=== PATIENT | female | born 1945 | race Caucasian/White ===

== ENCOUNTER 2017-11-09 12:02 | Inpatient (IN) | payer MEDICARE ==
[2017-11-09] MEDS ORDERED: FENTANYL CITRATE INJ/PF 100 MCG/2 ML AMPUL IV ONE ×2 (12:49→16:44)
[2017-11-09] MEDS ORDERED: ONDANSETRON HCL INJ/PF 4 MG/2 ML SDV IV ONE (12:49)
[2017-11-09] MEDS ORDERED: NORMAL SALINE 1000 ML 1,000 ML IV ONE ×2 (12:51→16:47)
--- NOTE | 2017-11-09 12:52 | ER Document Report ---
ED Medical Screen (RME) - General Chief Complaint: Nausea/Vomiting/Diarrhea Stated Complaint: NAUSEA,VOMITING,DIARRHEA Time Seen by Provider: 11/09/17 12:40 Notes: 72-year-old female past medical history IBS here with complaints of diffuse abdominal pain and distention since yesterday. She has had some nausea but no vomiting. She denies any fevers or chills. She was seen at an urgent care facility this morning and told to come here to rule out obstruction EXAM Mild to moderate abdominal distention with mild tenderness to palpation No peritoneal signs TRAVEL OUTSIDE OF THE [place] IN LAST 30 DAYS: No - Related Data Allergies/Adverse Reactions: No Known Allergies Allergy (Verified 11/09/17 12:03) Past Medical History - Social History Chew tobacco use (# tins/day): No Frequency of alcohol use: None Drug Abuse: None Renal/ Medical History: Denies: Hx Peritoneal Dialysis Physical Exam - Vital signs Vitals: Temp Pulse Resp BP Pulse Ox 98.3 F 109 H 16 141/72 H 98 11/09/17 12:09 11/09/17 12:09 11/09/17 12:09 11/09/17 12:09 11/09/17 12:09 Course - Vital Signs Vital signs: Temp Pulse Resp BP Pulse Ox 98.3 F 109 H 16 141/72 H 98 11/09/17 12:09 11/09/17 12:09 11/09/17 12:09 11/09/17 12:09 11/09/17 12:09
[2017-11-09 13:46] LABS: HEMATOCRIT 40.6 % (36.0-47.0); HEMOGLOBIN 13.5 g/dL (12.0-15.5); MEAN CORPUSCULAR HEMOGLOBIN 29.6 pg (27.0-33.4); MEAN CORPUSCULAR HGB CONC 33.3 g/dL (32.0-36.0); MEAN CORPUSCULAR VOLUME 89 fl (80-97); PLATELET COUNT 500 10^3/uL (150-450); RED BLOOD COUNT 4.57 10^6/uL (3.72-5.28); RED CELL DISTRIBUTION WIDTH 13.6 % (11.5-14.0); WHITE BLOOD COUNT 14.6 10^3/uL (4.0-10.5)
[2017-11-09 14:03] LABS: ALANINE AMINOTRANSFERASE 18 U/L (9-52); ALBUMIN 4.5 g/dL (3.5-5.0); ALKALINE PHOSPHATASE 66 U/L (38-126); ANION GAP 13 (5-19); ASPARTATE AMINO TRANSFERASE 28 U/L (14-36); BILIRUBIN,DIRECT 0.2 mg/dL (0.0-0.4); BILIRUBIN,TOTAL 0.7 mg/dL (0.2-1.3); BLOOD UREA NITROGEN 31 mg/dL (7-20); CARBON DIOXIDE 26 mmol/L (22-30); CHLORIDE 99 mmol/L (98-107); GLUCOSE 124 mg/dL (75-110); LIPASE 51.8 U/L (23-300); POTASSIUM 5.2 mmol/L (3.6-5.0); SODIUM 137.8 mmol/L (137-145); TOTAL PROTEIN 6.9 g/dL (6.3-8.2)
[2017-11-09 14:09] LABS: ABSOLUTE LYMPHOCYTES# (MANUAL) 0.4 10^3/uL (0.5-4.7); ABSOLUTE MONOCYTES # (MANUAL) 0.1 10^3/uL (0.1-1.4); BASOPHILS % (MANUAL) 0 % (0-2); EOSINOPHILS % (MANUAL) 0 % (0-6); HYPOCHROMASIA SLIGHT; LYMPHOCYTES % (MANUAL) 3 % (13-45); MONOCYTES % (MANUAL) 1 % (3-13); PLATELET CLUMPS PRESENT; PLATELET LARGE PRESENT; SEGMENTED NEUTROPHILS % (MAN) 96 % (42-78); TOTAL CELLS COUNTED 100; TOXIC GRANULATION SLIGHT; TOXIC VACUOLATION PRESENT
--- NOTE | 2017-11-09 16:47 | RADIOLOGY REPORT (SQ) ---
EXAM DESCRIPTION: CT ABD/PELVIS WITH IV ORAL COMPLETED DATE/TIME: 11/09/2017 4:30 pm REASON FOR STUDY: diffuse abd pain distension; eval SBO COMPARISON: None. TECHNIQUE: CT scan of the abdomen and pelvis performed with intravenous and oral contrast using derba heydi scanning technique with dynamic intravenous contrast injection. Images reviewed with lung, soft t issue, and bone windows. Reconstructed coronal and sagittal MPR images reviewed. Delayed images for e valuation of the urinary system also acquired. All images stored on PACS. All CT scanners at this facility use dose modulation, iterative reconstruction, and/or weight based d osing when appropriate to reduce radiation dose to as low as reasonably achievable (ALARA). [facility]: Dose Right [facility]: CareDose [facility]: Dose Right [facility]: Teradose 4D [facility]: Profex CONTRAST TYPE AND DOSE: contrast/concentration: Isovue 370.00 mg/ml; Total Contrast Delivered: 48.0 ml; Total Saline Delivered: 65.0 ml RENAL FUNCTION: GFR > 60. RADIATION DOSE: CT Rad equipment meets quality standard of care and radiation dose reduction techniq ues were employed. CTDIvol: 4.9 - 6.0 mGy. DLP: 455 mGy-cm. . LIMITATIONS: Patient motion. FINDINGS: LOWER CHEST: No significant findings. No nodules or infiltrates. LIVER: Normal size. No masses. No dilated ducts. SPLEEN: Normal size. No focal lesions. PANCREAS: No masses. No significant calcifications. No adjacent inflammation or peripancreatic fluid collections. Pancreatic duct not dilated. GALLBLADDER: No identified stones by CT criteria. No inflammatory changes to suggest cholecystitis. ADRENAL GLANDS: 1 x 2 cm right adrenal nodule. RIGHT KIDNEY AND URETER: No solid masses. No significant calcifications. No hydronephrosis or hyd roureter. LEFT KIDNEY AND URETER: No solid masses. No significant calcifications. No hydronephrosis or hydr oureter. AORTA AND VESSELS: No aneurysm. RETROPERITONEUM: No retroperitoneal adenopathy, hemorrhage or masses. BOWEL AND PERITONEAL CAVITY: Dilated loops of small bowel with gas fluid levels. Majority contrast i s in the jejunum. No clear transition point. Contrast within nondilated colon. No ascites or free air. APPENDIX: Not visualized. PELVIS: No significant masses. Normal bladder. No free fluid. ABDOMINAL WALL: No masses. No hernias. BONES: No acute findings. OTHER: No other significant finding. IMPRESSION: Small bowel obstruction without clear transition point. TECHNICAL DOCUMENTATION: JOB ID: [id number] Quality ID # [id number]: Final reports with documentation of one or more dose reduction techniques (e.g., Au tomated exposure control, adjustment of the mA and/or kV according to patient size, use of iterative reconstruction technique) 2010 [employer]- All Rights Reserved
[2017-11-09 16:58] LABS: APPEARANCE,URINE CLOUDY; BILIRUBIN,URINE NEGATIVE (NEGATIVE); COLOR,URINE YELLOW; GLUCOSE, URINE 50 mg/dL (NEGATIVE); KETONES,URINE 20 mg/dL (NEGATIVE); LEUKOCYTE ESTERASE,URINE NEGATIVE (NEGATIVE); NITRITE,URINE NEGATIVE (NEGATIVE); PROTEIN,URINE 30 mg/dL (NEGATIVE); URINE SPECIFIC GRAVITY 1.029
--- NOTE | 2017-11-09 17:05 | ER Document Report ---
ED General - General Chief Complaint: Nausea/Vomiting/Diarrhea Stated Complaint: NAUSEA,VOMITING,DIARRHEA Time Seen by Provider: 11/09/17 12:40 Mode of Arrival: Ambulatory Information source: Patient TRAVEL OUTSIDE OF THE [place] IN LAST 30 DAYS: No - HPI Patient complains to provider of: abd pain Onset: Other - 3 dcays ago Onset/Duration: Gradual, Constant Quality of pain: Other - "gurgling" Severity: Moderate Context: States the last 3 days she has had abdominal distention, nausea, decreased p.o. intake and diarrhea last night at 1 AM. Patient states she has had no history of surgeries in the past. She does have a history of IBS. Patient's mother has a history of colon cancer. Patient denies colonoscopy or endoscopy in the past. No acute weight gain or loss. Associated symptoms: Diarrhea, Nausea Exacerbated by: Movement, Food Relieved by: Denies Similar symptoms previously: No Recently seen / treated by doctor: Yes - Sent over from urgent care for further evaluation - Related Data Allergies/Adverse Reactions: No Known Allergies Allergy (Verified 11/09/17 12:03) Home Medications: Current Home Medications No Home Medications 11/09/17 [History] Past Medical History - General Information source: Patient - Social History Smoking Status: Current Every Day Smoker Chew tobacco use (# tins/day): No Frequency of alcohol use: None Drug Abuse: None Lives with: Alone Family History: Other - Colon cancer Patient has suicidal ideation: No Patient has homicidal ideation: No - Past Medical History Cardiac Medical History: Reports: None Pulmonary Medical History: Reports: None EENT Medical History: Reports: None Neurological Medical History: Reports: None Endocrine Medical History: Reports: None Renal/ Medical History: Reports: None. Denies: Hx Peritoneal Dialysis Malignancy Medical History: Reports: None GI Medical History: Reports: Hx Irritable Bowel Musculoskeltal Medical History: Reports None Skin Medical History: Reports None Psychiatric Medical History: Reports: None Traumatic Medical History: Reports: None Infectious Medical History: Reports: None Surgical Hx: Negative Review of Systems - Review of Systems Constitutional: denies: Chills, Diaphoresis, Fever, Malaise, Weakness, Weight gain, Weight loss, Recent illness EENT: No symptoms reported Cardiovascular: No symptoms reported Respiratory: No symptoms reported Gastrointestinal: Abdomen distended, Abdominal pain, Nausea, Poor appetite, Poor fluid intake, Last bowel movement - 1 am Genitourinary: No symptoms reported Female Genitourinary: No symptoms reported Musculoskeletal: No symptoms reported Skin: No symptoms reported Hematologic/Lymphatic: No symptoms reported Neurological/Psychological: No symptoms reported Physical Exam - Vital signs Vitals: Temp Pulse Resp BP Pulse Ox 98.3 F 109 H 16 141/72 H 98 11/09/17 12:09 11/09/17 12:09 11/09/17 12:09 11/09/17 12:09 11/09/17 12:09 - Notes Notes: PHYSICAL EXAMINATION: GENERAL: Thin chronically ill-appearing female. HEAD: Atraumatic, normocephalic. EYES: Pupils equal round and reactive to light, extraocular movements intact, conjunctiva are normal. ENT: Nares patent, oropharynx clear without exudates. Dry mucous membranes. NECK: Normal range of motion, supple without lymphadenopathy LUNGS: Breath sounds clear to auscultation bilaterally and equal. No wheezes rales or rhonchi. HEART: Regular rate and rhythm without murmurs ABDOMEN: Distended hypoactive bowel sounds mild tenderness no guarding, no rebound. No masses appreciated. Female : deferred Musculoskeletal: Normal range of motion, no pitting or edema. No cyanosis. NEUROLOGICAL: Cranial nerves grossly intact. Normal speech, normal gait. Normal sensory, motor exams PSYCH: Normal mood, normal affect. SKIN: Warm, Dry, normal turgor, no rashes or lesions noted. Course - Re-evaluation Re-evalutation: 11/09/17 17:06 I did speak with Dr. Olvera. He he is coming to see patient. - Vital Signs Vital signs: Temp Pulse Resp BP Pulse Ox 98.3 F 109 H 18 148/77 H 96 11/09/17 12:09 11/09/17 12:09 11/09/17 18:31 11/09/17 18:31 11/09/17 18:31 - Laboratory Result Diagrams: 11/09/17 13:26 11/09/17 13:26 Laboratory results interpreted by me: 11/09/17 11/09/17 11/09/17 13:26 13:26 16:32 WBC 14.6 H Plt Count 500 H Seg Neuts % (Manual) 96 H Lymphocytes % (Manual) 3 L Monocytes % (Manual) 1 L Abs Neuts (Manual) 14.0 H Abs Lymphs (Manual) 0.4 L Potassium 5.2 H BUN 31 H Glucose 124 H Urine Protein 30 H Urine Glucose (UA) 50 H Urine Ketones 20 H Urine Urobilinogen 2.0 H Urine Ascorbic Acid 40 H - Diagnostic Test Radiology reviewed: Image reviewed, Reports reviewed Radiology results interpreted by me: 11/09/17 17:05 Small bowel obstruction 11/09/17 19:06 KUB showed further advancements of NG tube needed. Nurse aware and procedure completed Discharge - Discharge Clinical Impression: Small bowel obstruction Disposition: ADMITTED INPATIENT Admitting Provider: Surgicalist Unit Admitted: Surgical Floor
--- NOTE | 2017-11-09 18:29 | RADIOLOGY REPORT (SQ) ---
EXAM DESCRIPTION: KUB/ABDOMEN (SINGLE VIEW) COMPLETED DATE/TIME: 11/09/2017 6:17 pm REASON FOR STUDY: NG placement COMPARISON: None. NUMBER OF VIEWS: One view. TECHNIQUE: Supine radiographic image of the abdomen acquired. LIMITATIONS: None. FINDINGS: BOWEL GAS PATTERN: Dilated small bowel. CALCIFICATIONS: No suspicious calcifications. SOFT TISSUES: No gross mass or suggestion of organomegaly. HARDWARE: Tip of the nasogastric tube at the level of the gastroesophageal junction. BONES: No acute fracture. No worrisome bone lesions. OTHER: No other significant finding. IMPRESSION: TIP OF THE NASOGASTRIC TUBE AT THE LEVEL OF THE GASTROESOPHAGEAL JUNCTION. ADVANCEMENT BY 10 CM RECOMMENDED TO IMPROVE POSITIONING. TECHNICAL DOCUMENTATION: JOB ID: [id number] [employer] All Rights Reserved
[2017-11-09] MEDS ORDERED: ONDANSETRON HCL INJ/PF 4 MG/2 ML SDV IV PRN (19:19)
--- NOTE | 2017-11-09 19:19 | PDOC H&P ---
History of Present Illness Admission Date/PCP: 11/09/17 Patient complains of: Abdominal pains History of Present Illness: ALEJANDRA BHAKTA is a 72 year old female c/o lower abdominal pains with N/V for past 2 days worse today. Brought to ED by her neighbor. CT scan of abdomen showed SBO with no focal point identified.No previous abdominal surgery.Strong family histoty of colon cancer. Never had a colonoscopy. Past Medical History Cardiac Medical History: Reports: None Pulmonary Medical History: Reports: None EENT Medical History: Reports: None Neurological Medical History: Reports: None Endocrine Medical History: Reports: None Renal/ Medical History: Reports: None Malignancy Medical History: Reports: None Musculoskeltal Medical History: Reports: None Skin Medical History: Reports: None Psychiatric Medical History: Reports: None Traumatic Medical History: Reports: None Infectious Medical History: Reports: None Social History Lives with: Alone Smoking Status: Current Every Day Smoker Cigarettes Packs Per Day: 1 Frequency of Alcohol Use: Rare Hx Recreational Drug Use: No - Advance Directive Resuscitation Status: Full Code Family History Family History: Other - Colon cancer Parental Family History Reviewed: Yes - History of colon CA Children Family History Reviewed: No Sibling(s) Family History Reviewed.: No Medication/Allergy Home Medications: No Home Medications 11/09/17 Allergies/Adverse Reactions: No Known Allergies Allergy (Verified 11/09/17 12:03) Review of Systems Constitutional: PRESENT: other - No fever/chills Eyes: PRESENT: other - no visual,hearing changes Nose, Mouth, and Throat: PRESENT: other - no sore throat Cardiovascular: PRESENT: other - no chest pains Respiratory: PRESENT: other - no cough Gastrointestinal: PRESENT: abdominal pain, nausea, vomiting Genitourinary: PRESENT: other - no dysuria Musculoskeletal: PRESENT: other - no joint swelling Integumentary: PRESENT: other - no rash Neurological: PRESENT: other - no seizures Psychiatric: PRESENT: anxiety Endocrine: PRESENT: other - no polyuria Hematologic/Lymphatic: PRESENT: other - no easy bruisability Physical Exam Vital Signs: Temp Pulse Resp BP Pulse Ox 98.3 F 109 H 18 148/77 H 96 11/09/17 12:09 11/09/17 12:09 11/09/17 18:31 11/09/17 18:31 11/09/17 18:31 Intake & Output 11/08/17 11/09/17 11/10/17 06:59 06:59 06:59 Weight 44.3 kg General appearance: PRESENT: mild distress Head exam: PRESENT: atraumatic Eye exam: PRESENT: conjunctiva pink Mouth exam: PRESENT: dry mucosa Neck exam: PRESENT: full ROM Respiratory exam: PRESENT: clear to auscultation everardo Cardiovascular exam: PRESENT: RRR Pulses: PRESENT: normal radial pulses GI/Abdominal exam: PRESENT: soft, tenderness - lower quadrants Rectal exam: PRESENT: deferred Extremities exam: PRESENT: full ROM Musculoskeletal exam: PRESENT: ambulatory Neurological exam: PRESENT: alert, oriented to person, oriented to place, oriented to time, oriented to situation Psychiatric exam: PRESENT: anxious Skin exam: PRESENT: normal color, warm Results Laboratory Results: 11/09/17 13:26 11/09/17 13:26 11/09/17 11/09/17 11/09/17 13:26 13:26 16:32 WBC 14.6 H RBC 4.57 Hgb 13.5 Hct 40.6 MCV 89 MCH 29.6 MCHC 33.3 RDW 13.6 Plt Count 500 H Seg Neutrophils % Not Reportable Lymphocytes % Not Reportable Monocytes % Not Reportable Eosinophils % Not Reportable Basophils % Not Reportable Absolute Neutrophils Not Reportable Absolute Lymphocytes Not Reportable Absolute Monocytes Not Reportable Absolute Eosinophils Not Reportable Absolute Basophils Not Reportable Sodium 137.8 Potassium 5.2 H Chloride 99 Carbon Dioxide 26 Anion Gap 13 BUN 31 H Creatinine 0.79 Est GFR ( Amer) > 60 Est GFR (Non-Af Amer) > 60 Glucose 124 H Calcium 10.0 Total Bilirubin 0.7 AST 28 ALT 18 Alkaline Phosphatase 66 Total Protein 6.9 Albumin 4.5 Lipase 51.8 Urine Color YELLOW Urine Appearance CLOUDY Urine pH 5.0 Ur Specific [place] 1.029 Urine Protein 30 H Urine Glucose (UA) 50 H Urine Ketones 20 H Urine Blood NEGATIVE Urine Nitrite NEGATIVE Ur Leukocyte Esterase NEGATIVE Urine WBC (Auto) 2 Urine RBC (Auto) 1 Impressions: KUB X-Ray 11/09/17 00:00 IMPRESSION: TIP OF THE NASOGASTRIC TUBE AT THE LEVEL OF THE GASTROESOPHAGEAL JUNCTION. ADVANCEMENT BY 10 CM RECOMMENDED TO IMPROVE POSITIONING. Abdomen/Pelvis CT 11/09/17 12:49 IMPRESSION: Small bowel obstruction without clear transition point. Assessment & Plan - Time Time Spent: 30 to 50 Minutes - Inpatient Certification Medical Necessity: Need For IV Fluids, Need for Pain Control, Need for IV Antibiotics - Plan Summary Plan Summary: NGT to LIS Hydrate Morphine prn Serial evaluation and Xrays May need Ba enema to make sure no colonic obstruction with strong family history of CA and with patient no history of Abdominal surgery
[2017-11-09] MEDS ORDERED: HYDROMORPHONE HCL INJ/PF 2 MG/ML AMPULE IV ONE (19:25)
[2017-11-09] MEDS: NORMAL SALINE 1000 ML 1,000 ML IV PRN (21:18)
[2017-11-10 05:20] LABS: ABSOLUTE LYMPHOCYTES (AUTO) 1.5 10^3/uL (0.5-4.7); ABSOLUTE NEUT (AUTO) 10.2 10^3/uL (1.7-8.2); BASOPHILS % (AUTO) 0.4 % (0-2); EOSINOPHILS % (AUTO) 0.2 % (0-6); HEMATOCRIT 34.2 % (36.0-47.0); LYMPHOCYTES % (AUTO) 11.6 % (13-45); MEAN CORPUSCULAR HGB CONC 32.6 g/dL (32.0-36.0); MEAN CORPUSCULAR VOLUME 89 fl (80-97); MONOCYTES % (AUTO) 7.9 % (3-13); PLATELET COUNT 345 10^3/uL (150-450); RED BLOOD COUNT 3.85 10^6/uL (3.72-5.28); RED CELL DISTRIBUTION WIDTH 13.6 % (11.5-14.0); SEGMENTED NEUTROPHILS % (AUTO) 79.9 % (42-78); TOTAL CELLS COUNTED % (AUTO) 100 %; WHITE BLOOD COUNT 12.8 10^3/uL (4.0-10.5)
[2017-11-10 05:33] LABS: HEMOGLOBIN 11.1 g/dL (12.0-15.5)
[2017-11-10 06:00] LABS: ALANINE AMINOTRANSFERASE 23 U/L (9-52); ALBUMIN 2.8 g/dL (3.5-5.0); ALKALINE PHOSPHATASE 45 U/L (38-126); ANION GAP 9 (5-19); ASPARTATE AMINO TRANSFERASE 24 U/L (14-36); BILIRUBIN,DIRECT 0.3 mg/dL (0.0-0.4); BILIRUBIN,TOTAL 0.7 mg/dL (0.2-1.3); BLOOD UREA NITROGEN 25 mg/dL (7-20); CALCIUM 8.5 mg/dL (8.4-10.2); CARBON DIOXIDE 19 mmol/L (22-30); CHLORIDE 110 mmol/L (98-107); GLUCOSE 81 mg/dL (75-110); LIPASE 29.8 U/L (23-300); SODIUM 137.6 mmol/L (137-145); TOTAL PROTEIN 4.8 g/dL (6.3-8.2)
[2017-11-10 06:22] LABS: POTASSIUM 4.1 mmol/L (3.6-5.0)
[2017-11-10] MEDS: NORMAL SALINE 1000 ML 1,000 ML IV PRN ×2 (10:07→18:12)
--- NOTE | 2017-11-10 14:52 | PDOC PROGRESS REPORT ---
Subjective Progress Note for:: 11/10/17 Reason For Visit: SMALL BOWEL OBSTRUCTION Patient has had nasogastric decompression overnight with minimal output. She states she has some flatus and may feel better. Less pain. Physical Exam Vital Signs: Temp Pulse Resp BP Pulse Ox 98.3 F 84 14 127/64 H 94 11/10/17 11:17 11/10/17 11:17 11/10/17 11:17 11/10/17 11:17 11/10/17 11:17 Intake & Output 11/09/17 11/10/17 11/11/17 06:59 06:59 06:59 Intake Total 0 541 Output Total 100 Balance -100 541 Weight 48.1 kg General appearance: PRESENT: no acute distress GI/Abdominal exam: PRESENT: other - Slight distention below the umbilicus, mild tympany no peritoneal signs no rigidity no organomegaly. Results Laboratory Results: 11/10/17 04:57 11/10/17 04:57 11/10/17 11/10/17 04:57 04:57 WBC 12.8 H RBC 3.85 Hgb 11.1 L D Hct 34.2 L MCV 89 MCH 29.0 MCHC 32.6 RDW 13.6 Plt Count 345 Seg Neutrophils % 79.9 H Lymphocytes % 11.6 L Monocytes % 7.9 Eosinophils % 0.2 Basophils % 0.4 Absolute Neutrophils 10.2 H Absolute Lymphocytes 1.5 Absolute Monocytes 1.0 Absolute Eosinophils 0.0 Absolute Basophils 0.0 Sodium 137.6 Potassium 4.1 D Chloride 110 H Carbon Dioxide 19 L Anion Gap 9 BUN 25 H Creatinine 0.53 Est GFR ( Amer) > 60 Est GFR (Non-Af Amer) > 60 Glucose 81 Calcium 8.5 Total Bilirubin 0.7 AST 24 ALT 23 Alkaline Phosphatase 45 Total Protein 4.8 L Albumin 2.8 L Lipase 29.8 Impressions: KUB X-Ray 11/09/17 00:00 IMPRESSION: TIP OF THE NASOGASTRIC TUBE AT THE LEVEL OF THE GASTROESOPHAGEAL JUNCTION. ADVANCEMENT BY 10 CM RECOMMENDED TO IMPROVE POSITIONING. Abdomen/Pelvis CT 11/09/17 12:49 IMPRESSION: Small bowel obstruction without clear transition point. Assessment & Plan - Diagnosis (1) Small bowel obstruction Is this a current diagnosis for this admission?: Yes Plan: Likely partial, etiology undetermined; patient clinically improved her report; still slightly distended on physical exam. Recommendations: 1. We will try clamping NG tube, ambulate patient and reassess. 2. Patient has never had a colonoscopy and is 21 years overdue; she does have a history of irritable bowel syndrome and other possible obscure gastrointestinal complaints that have never been thoroughly evaluated. They appeared to be rest related issues 3. If patient improves then diet will be advanced and she will be discharged home soon; otherwise she may need a contrast study to determine if she has a meme mechanical obstruction which is less likely.
[2017-11-10] MEDS ORDERED: BENZOCAINE/MENTHOL SORE THROAT LOZENGE BUCCAL PRN (14:54)
--- NOTE | 2017-11-11 09:56 | PDOC PROGRESS REPORT ---
Subjective Progress Note for:: 11/11/17 Reason For Visit: SMALL BOWEL OBSTRUCTION Hospital day 3 for the patient with partial small bowel obstruction. She tolerated nasogastric tube clamping. She tolerated ice chips. She has had multiple loose bowel movements and flatus per her report. Physical Exam Vital Signs: Temp Pulse Resp BP Pulse Ox 98.4 F 92 20 142/52 H 95 11/11/17 07:46 11/11/17 07:46 11/11/17 07:46 11/11/17 07:46 11/11/17 07:46 Intake & Output 11/10/17 11/11/17 11/12/17 06:59 06:59 06:59 Intake Total 0 991 Output Total 100 370 Balance -100 621 Weight 48.1 kg 48.1 kg General appearance: PRESENT: no acute distress GI/Abdominal exam: PRESENT: other - Soft, nontender, no peritoneal signs, no rigidity. He still a little Pouchy towards the pelvic region but not tender Results Laboratory Results: 11/10/17 04:57 11/10/17 04:57 Impressions: KUB X-Ray 11/09/17 00:00 IMPRESSION: TIP OF THE NASOGASTRIC TUBE AT THE LEVEL OF THE GASTROESOPHAGEAL JUNCTION. ADVANCEMENT BY 10 CM RECOMMENDED TO IMPROVE POSITIONING. Abdomen/Pelvis CT 11/09/17 12:49 IMPRESSION: Small bowel obstruction without clear transition point. Assessment & Plan - Diagnosis (1) Small bowel obstruction Plan: Hospital day 3 for patient with partial small bowel obstruction, with clinical improvement. Plan: 1. Patient on clear liquids 2. Increase ambulation 3. Anticipate discharge home the next 24-40 hours if she continues to improve
--- NOTE | 2017-11-12 13:30 | PDOC PROGRESS REPORT ---
Subjective Progress Note for:: 11/12/17 Subjective:: No pains. Tolerating clears. Has BM and passing flatus Reason For Visit: SMALL BOWEL OBSTRUCTION Physical Exam Vital Signs: Temp Pulse Resp BP Pulse Ox 98.1 F 92 20 139/63 H 96 11/12/17 11:08 11/12/17 11:08 11/12/17 11:08 11/12/17 11:08 11/12/17 11:08 Intake & Output 11/11/17 11/12/17 11/13/17 06:59 06:59 06:59 Intake Total 991 4005 Output Total 370 Balance 621 4005 Weight 48.1 kg 48.7 kg Exam: Abdomen is soft with mild tenderness epigastric area Results Laboratory Results: 11/10/17 04:57 11/10/17 04:57 Impressions: KUB X-Ray 11/09/17 00:00 IMPRESSION: TIP OF THE NASOGASTRIC TUBE AT THE LEVEL OF THE GASTROESOPHAGEAL JUNCTION. ADVANCEMENT BY 10 CM RECOMMENDED TO IMPROVE POSITIONING. Abdomen/Pelvis CT 11/09/17 12:49 IMPRESSION: Small bowel obstruction without clear transition point. Assessment & Plan - Diagnosis (1) Small bowel obstruction Is this a current diagnosis for this admission?: Yes - Time Time Spent with patient: 15-24 minutes - Plan Summary Plan Summary: Gradually increase diet today. Possible discharge tomorrow if continues to tolerate soft diet and eat enough calories. Claims appetite is poor.
[2017-11-13 10:02] VITALS: BP 147/48
--- NOTE | 2017-11-14 22:14 | DISCHARGE SUMMARY E ---
Discharge Summary NAME: ALEJANDRA BHAKTA : 1945 AGE: 72Y ADMITTED: 11/09/2017 DISCHARGED: 11/13/2017 FINAL DIAGNOSIS: 1. PARTIAL SMALL BOWEL OBSTRUCTION. 2. HISTORY OF IRRITABLE BOWEL SYNDROME. HOSPITAL COURSE: This is a 72-year-old female complaining of nausea, abdominal distension and decreased p.o. intake with diarrhea for the past 3 days. She went to the emergency room where a CT scan of the abdomen revealed small-bowel obstruction but no transitional point noted. An NG tube was inserted and the patient gradually improved. She developed flatus and NG drainage decreased around 2 days after admission. The NG tube was removed and she was able to tolerate a regular diet on the day of discharge. She is passing flatus and had a bowel movement. She was then discharged improved on 11/13/17. She was encouraged to come to the surgical clinic in 2 weeks and to be scheduled for colonoscopy with her strong family history of colon cancer. Her mother of colon cancer. DICTATING PHYSICIAN: LAMINE CARBALLO M.D. [id number] PHY#: [id number] ID: [id number] JOB#: [id number] ACCT: [id number] cc:LAMINE CARBALLO M.D. >
== END 2017-11-13 10:34 | disposition home or self-care (01) | DRG 390 ==
LOC: ER 12:02 → EH 19:43 → 4S 22:55
PROVIDERS: ADMIT Surgery; ATTEND Surgery
PROC: 0D9670Z Drainage of Stomach with Drainage Device, Via Natural or Artificial Opening (ICD-10-PCS; principal; 2017-11-09)
DX: K56.609 Unspecified intestinal obstruction, unspecified as to partial versus complete obstruction (principal); F17.210 Nicotine dependence, cigarettes, uncomplicated; K58.9 Irritable bowel syndrome, unspecified; Z60.2 Problems related to living alone; Z80.0 Family history of malignant neoplasm of digestive organs
CPT/HCPCS: 36415; 74018; 74177; 80053; 81001; 83690; 85025; 96361; 96374; 96375; 96376; 99285; J1170; J2405; J3010; J7030

== ENCOUNTER 2017-11-16 01:50 | Inpatient (IN) | payer MEDICARE ==
[2017-11-16] MEDS ORDERED: NORMAL SALINE 1000 ML 1,000 ML IV ONE (03:00)
[2017-11-16] MEDS ORDERED: ONDANSETRON HCL INJ/PF 4 MG/2 ML SDV IV ONE (03:02)
[2017-11-16 03:40] LABS: ABSOLUTE BASOPHILS # (AUTO) 0.1 10^3/uL (0.0-0.2); ABSOLUTE EOSINOPHILS # (AUTO) 0.1 10^3/uL (0.0-0.6); ABSOLUTE LYMPHOCYTES (AUTO) 1.2 10^3/uL (0.5-4.7); ABSOLUTE MONOCYTES (AUTO) 0.8 10^3/uL (0.1-1.4); BASOPHILS % (AUTO) 0.8 % (0-2); EOSINOPHILS % (AUTO) 0.6 % (0-6); HEMATOCRIT 34.2 % (36.0-47.0); HEMOGLOBIN 11.2 g/dL (12.0-15.5); LYMPHOCYTES % (AUTO) 11.8 % (13-45); MEAN CORPUSCULAR HGB CONC 32.9 g/dL (32.0-36.0); MEAN CORPUSCULAR VOLUME 88 fl (80-97); MONOCYTES % (AUTO) 7.5 % (3-13); PLATELET COUNT 374 10^3/uL (150-450); RED BLOOD COUNT 3.88 10^6/uL (3.72-5.28); RED CELL DISTRIBUTION WIDTH 13.5 % (11.5-14.0); SEGMENTED NEUTROPHILS % (AUTO) 79.3 % (42-78); TOTAL CELLS COUNTED % (AUTO) 100 %; WHITE BLOOD COUNT 10.1 10^3/uL (4.0-10.5)
[2017-11-16 04:42] LABS: ALANINE AMINOTRANSFERASE 33 U/L (9-52); ALKALINE PHOSPHATASE 53 U/L (38-126); ANION GAP 5 (5-19); ASPARTATE AMINO TRANSFERASE 23 U/L (14-36); BILIRUBIN,DIRECT 0.2 mg/dL (0.0-0.4); BILIRUBIN,TOTAL 0.4 mg/dL (0.2-1.3); BLOOD UREA NITROGEN 12 mg/dL (7-20); CALCIUM 8.7 mg/dL (8.4-10.2); CARBON DIOXIDE 29 mmol/L (22-30); CHLORIDE 105 mmol/L (98-107); GLUCOSE 90 mg/dL (75-110); LIPASE 23.3 U/L (23-300); POTASSIUM 3.7 mmol/L (3.6-5.0); SODIUM 139.3 mmol/L (137-145); TOTAL PROTEIN 5.1 g/dL (6.3-8.2)
--- NOTE | 2017-11-16 04:46 | RADIOLOGY REPORT (SQ) ---
EXAM DESCRIPTION: ACUTE ABDOMEN SERIES CLINICAL HISTORY: 72 years, Female, recent sbo, vomiting yesterday COMPARISON: CT, 11/09/2017. TECHNIQUE: Three view. LIMITATIONS: None. FINDINGS: Moderate small bowel dilation with air-fluid levels includes a 5.8 cm diameter small bowel loop of the left lower abdominal quadrant, moderate stacking of small bowel, no evidence of free air, moderate scoliotic curvature, and no acute cardiopulmonary findings. 1.2 cm nonspecific sclerosis/enterolith at the right ilium. IMPRESSION: Moderate small bowel obstruction pattern. Differential diagnosis includes ileus. 2011 [employer]- All Rights Reserved
[2017-11-16] MEDS ORDERED: METOCLOPRAMIDE HCL INJ/PF 10 MG/2 ML SDV IV ONE (05:53)
[2017-11-16] MEDS ORDERED: MORPHINE SULFATE 10 MG/ML INJ IV ONE (05:56)
--- NOTE | 2017-11-16 05:58 | ER Document Report ---
ED GI/ - General Chief Complaint: Abdominal Pain Stated Complaint: ABDOMINAL PAIN VOMITING Time Seen by Provider: 11/16/17 02:58 Mode of Arrival: Ambulatory Information source: Patient Notes: Patient is a 72-year-old female who presents to the ER today for abdominal pain , vomiting after being diagnosed on November 09 with a small bowel obstruction, being admitted to the hospital for approximately 4 days. Patient states that she thinks "I was sent home too early." She does state that she has been slowly adding solid foods back in her diet and doing well with that, passing gas and having normal bowel movements, however prior to arrival she was cleaning up her dogs poop on the floor and vomited. She states "I was told to come back if I vomited so here I am." She denies fever/chills. TRAVEL OUTSIDE OF THE [place] IN LAST 30 DAYS: No - Related Data Allergies/Adverse Reactions: No Known Allergies Allergy (Verified 11/09/17 12:03) Past Medical History - General Information source: Patient - Social History Smoking Status: Never Smoker Chew tobacco use (# tins/day): No Frequency of alcohol use: None Family History: Other - Colon cancer Patient has suicidal ideation: No Patient has homicidal ideation: No Renal/ Medical History: Denies: Hx Peritoneal Dialysis GI Medical History: Reports: Hx Irritable Bowel Review of Systems - Review of Systems Constitutional: No symptoms reported EENT: No symptoms reported Cardiovascular: No symptoms reported Respiratory: No symptoms reported Gastrointestinal: See HPI Genitourinary: No symptoms reported Female Genitourinary: No symptoms reported Musculoskeletal: No symptoms reported Skin: No symptoms reported Hematologic/Lymphatic: No symptoms reported Neurological/Psychological: No symptoms reported Physical Exam - Vital signs Vitals: Temp Pulse Resp BP Pulse Ox 98.3 F 99 18 144/73 H 97 11/16/17 01:58 11/16/17 01:58 11/16/17 01:58 11/16/17 01:58 11/16/17 01:58 - Notes Notes: PHYSICAL EXAMINATION: GENERAL: Well-appearing and in no acute distress. HEAD: Atraumatic, normocephalic. EYES: Pupils equal round and reactive to light, extraocular movements intact, sclera anicteric, conjunctiva are normal. ENT: ear canals without erythema or foreign body, TMs pearly beltre with good bony landmarks, nares patent, oropharynx clear without exudates. dry mucous membranes. NECK: Normal range of motion, supple without lymphadenopathy LUNGS: CTAB and equal. No wheezes rales or rhonchi. HEART: Regular rate and rhythm without murmurs ABDOMEN: Soft, no tenderness. No guarding, no rebound BACK: no vertebral tenderness, normal ROM GI/: no CVA tenderness EXTREMITIES: Normal range of motion, no pitting edema. No cyanosis. NEUROLOGICAL: Cranial nerves grossly intact. Normal sensory/motor exams. PSYCH: Normal mood, normal affect. SKIN: Warm, Dry, normal turgor, no rashes or lesions noted Course - Re-evaluation Re-evalutation: 11/16/17 06:03 Lab work is unremarkable today including a normal white blood cell count, however patient in pattern versus ileus on abdominal x-ray today. Patient has not vomited here in the emergency department. CAT scan with IV and oral contrast Has been ordered at this time to further evaluate small bowel obstruction although clinically I do not see much evidence as she has been eating normal meals at home, passing gas and having normal bowel movements. She is even passing gas here in the emergency department. 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 pt doing well right now. - Vital Signs Vital signs: Temp Pulse Resp BP Pulse Ox 98.3 F 99 18 144/73 H 97 11/16/17 01:58 11/16/17 01:58 11/16/17 01:58 11/16/17 01:58 11/16/17 01:58 - Laboratory Result Diagrams: 11/16/17 03:24 11/16/17 04:10 Laboratory results interpreted by me: 11/16/17 11/16/17 03:24 04:10 Hgb 11.2 L Hct 34.2 L Seg Neutrophils % 79.3 H Lymphocytes % 11.8 L Creatinine 0.50 L Total Protein 5.1 L Albumin 3.0 L Discharge - Discharge Clinical Impression: Small bowel obstruction Condition: Stable Disposition: ADMITTED INPATIENT Admitting Provider: Surgicalist Unit Admitted: Surgical Floor
[2017-11-16 06:11] LABS: APPEARANCE,URINE TURBID; BILIRUBIN,URINE NEGATIVE (NEGATIVE); COLOR,URINE YELLOW; GLUCOSE, URINE NEGATIVE (NEGATIVE); KETONES,URINE NEGATIVE (NEGATIVE); LEUKOCYTE ESTERASE,URINE NEGATIVE (NEGATIVE); NITRITE,URINE NEGATIVE (NEGATIVE); PROTEIN,URINE NEGATIVE (NEGATIVE); URINE SPECIFIC GRAVITY 1.009; UROBILINOGEN,URINE NEGATIVE mg/dL (<2.0)
--- NOTE | 2017-11-16 06:57 | RADIOLOGY REPORT (SQ) ---
EXAM DESCRIPTION: CT ABD/PELVIS WITH IV ORAL CLINICAL HISTORY: 72 years Female, sbo on x ray, vomiting COMPARISON: 11/09/2017. TECHNIQUE: 51 mL Isovue-370 IV and oral contrast. Coronal and sagittal reformat. This exam was performed according to our departmental dose-optimization program, which includes automated exposure control, adjustment of the mA and/or kV according to patient size and/or use of iterative reconstruction technique. FINDINGS: Dilated loops of small bowel measure 4.9 cm in diameter with stacking and air fluid levels. Orally administered contrast is seen within the proximal few loops of the dilated bowel and throughout nondistended proximal jejunal bowel. Small ascites. No free air. No transition zone discerned. Small pericardial fluid. Indeterminate 2 x 0.8 cm right adrenal lesion. Atherosclerosis. 1.3 cm in a stenosis of the right ilium. Mild/moderate scoliotic curvature. Moderate disc desiccation of the upper-mid lumbar spine. Inferior thorax, liver, gallbladder, pancreas, spleen, splenule, left adrenal, renal system, pelvic organs, lymphatics, vasculature, and musculoskeleton appear otherwise unremarkable. IMPRESSION: 1. There are 4.9 cm diameter dilated loops of small bowel with air-fluid levels, and small ascites. Differential diagnosis includes low-grade obstruction and ileus. 2. Indeterminate 2 cm right adrenal lesion. Recommend dedicated MRI of the adrenals.
--- NOTE | 2017-11-16 10:40 | PDOC CONSULTATION ---
Consultation Consult Date: 11/16/17 Consult reason:: Abdominal distention History of Present Illness Admission Date/PCP: 11/16/17 07:36 Patient complains of: Abdominal distention x 12 hours with nausea History of Present Illness: ALEJANDRA BHAKTA is a 72 year old female with a recent admission for abdominal distention, nausea, CT scan done on 11/09/17 shows diffusely distended loops of small bowel with contrast in colon, no obvious obstruction seen; she karen discharged to home a few days ago able to eat with normal bowel function. She returns today with similar symptoms. A CT scan A/p with oral contrast shows aq similar picture. She reports flatus today and liquid stools yesterday. Past Surgical History Past Surgical History: Reports: None Social History Smoking Status: Never Smoker Frequency of Alcohol Use: None Hx Recreational Drug Use: Yes Drugs: None Hx Prescription Drug Abuse: No Family History Family History: None, Other - Colon cancer Parental Family History Reviewed: No Children Family History Reviewed: No Sibling(s) Family History Reviewed.: No Medication/Allergy Home Medications: No Home Medications 11/09/17 Allergies/Adverse Reactions: No Known Allergies Allergy (Verified 11/09/17 12:03) Physical Exam Vital Signs: Temp Pulse Resp BP Pulse Ox 98.3 F 99 18 144/73 H 97 11/16/17 01:58 11/16/17 01:58 11/16/17 01:58 11/16/17 01:58 11/16/17 01:58 Results Impressions: Abdomen/Pelvis CT 11/16/17 00:00 IMPRESSION: 1. There are 4.9 cm diameter dilated loops of small bowel with air-fluid levels, and small ascites. Differential diagnosis includes low-grade obstruction and ileus. 2. Indeterminate 2 cm right adrenal lesion. Recommend dedicated MRI of the adrenals. Acute Abdomen Series 11/16/17 03:00 IMPRESSION: Moderate small bowel obstruction pattern. Differential diagnosis includes ileus. 2011 [employer]- All Rights Reserved Assessment & Plan - Diagnosis (1) dyskenesia small bowel Is this a current diagnosis for this admission?: Yes Plan: Admit patient IV hydrationj' advance diet as tolerated
[2017-11-16] MEDS ORDERED: ACETAMINOPHEN 325 MG TABLET PO PRN (10:43)
[2017-11-16] MEDS ORDERED: POTASSI CL 20 MEQ/NS 1L 1,000 ML IV PRN (10:43)
[2017-11-16] MEDS ORDERED: MAGNESIUM HYDROXIDE SUSP 30 ML UDCUP PO SCH (10:45)
[2017-11-16] MEDS ORDERED: NORMAL SALINE 1000 ML 1,000 ML IV PRN ×2 (16:14)
[2017-11-16] MEDS: POTASSI CL 20 MEQ/NS 1L 1000 ML IV PRN (17:18)
[2017-11-16] MEDS ORDERED: DOCUSATE SODIUM 100 MG CAPSULE PO SCH (18:00)
[2017-11-16] MEDS ORDERED: INFLUENZA ADLT QUAD (36MOS+) 2017-18 VAC 0.5 ML SYR IM PRN (19:43)
[2017-11-16] MEDS: FAMOTIDINE INJ/PF 20 MG/2 ML SDV IV SCH (22:02)
[2017-11-16] MEDS: ONDANSETRON HCL INJ/PF 4 MG/2 ML SDV IV PRN (22:02)
[2017-11-17 05:10] LABS: ABSOLUTE BASOPHILS # (AUTO) 0.1 10^3/uL (0.0-0.2); ABSOLUTE EOSINOPHILS # (AUTO) 0.2 10^3/uL (0.0-0.6); ABSOLUTE LYMPHOCYTES (AUTO) 1.7 10^3/uL (0.5-4.7); ABSOLUTE MONOCYTES (AUTO) 0.9 10^3/uL (0.1-1.4); ABSOLUTE NEUT (AUTO) 5.7 10^3/uL (1.7-8.2); BASOPHILS % (AUTO) 1.1 % (0-2); EOSINOPHILS % (AUTO) 2.6 % (0-6); HEMATOCRIT 29.3 % (36.0-47.0); HEMOGLOBIN 9.8 g/dL (12.0-15.5); LYMPHOCYTES % (AUTO) 20.1 % (13-45); MEAN CORPUSCULAR HEMOGLOBIN 29.4 pg (27.0-33.4); MEAN CORPUSCULAR HGB CONC 33.5 g/dL (32.0-36.0); MEAN CORPUSCULAR VOLUME 88 fl (80-97); PLATELET COUNT 365 10^3/uL (150-450); RED BLOOD COUNT 3.35 10^6/uL (3.72-5.28); RED CELL DISTRIBUTION WIDTH 13.1 % (11.5-14.0); SEGMENTED NEUTROPHILS % (AUTO) 66.2 % (42-78); TOTAL CELLS COUNTED % (AUTO) 100 %; WHITE BLOOD COUNT 8.6 10^3/uL (4.0-10.5)
[2017-11-17 05:28] LABS: ANION GAP 6 (5-19); BLOOD UREA NITROGEN 6 mg/dL (7-20); CALCIUM 8.1 mg/dL (8.4-10.2); CARBON DIOXIDE 26 mmol/L (22-30); CHLORIDE 108 mmol/L (98-107); GLUCOSE 71 mg/dL (75-110); MAGNESIUM 1.9 mg/dL (1.6-2.3); POTASSIUM 3.6 mmol/L (3.6-5.0); SODIUM 139.6 mmol/L (137-145)
[2017-11-17] MEDS: POTASSI CL 20 MEQ/NS 1L 1000 ML IV PRN ×2 (07:22→21:41)
--- NOTE | 2017-11-17 08:43 | RADIOLOGY REPORT (SQ) ---
EXAM DESCRIPTION: ACUTE ABDOMEN SERIES COMPLETED DATE/TIME: 11/17/2017 8:28 am REASON FOR STUDY: f/u small bowel distention COMPARISON: CT 11/16/2017 NUMBER OF VIEWS: Three views. TECHNIQUE: Frontal chest, supine abdomen and upright/decubitus abdomen radiographic images acquired. LIMITATIONS: None. FINDINGS: CHEST: Lungs clear of infiltrates. FREE AIR: None. No abnormal gas collections. BOWEL GAS PATTERN: Stable distended loops of small bowel with air-fluid levels. Contrast is moved to the descending and sigmoid colon. CALCIFICATIONS: No suspicious calcifications. HARDWARE: None in the abdomen. SOFT TISSUES: No gross mass or suggestion of organomegaly. BONES: No acute fracture. No worrisome bone lesions. OTHER: No other significant finding. IMPRESSION: PERSISTENT DISTENDED SMALL BOWEL LOOPS WITH CONTRAST NOW IN THE COLON CONSISTENT WITH AN INCOMPLETE DISTAL SMALL BOWEL OBSTRUCTION. TECHNICAL DOCUMENTATION: JOB ID: [id number] [employer]- All Rights Reserved
[2017-11-17] MEDS: FAMOTIDINE INJ/PF 20 MG/2 ML SDV IV SCH ×2 (09:05→21:42)
[2017-11-17] MEDS ORDERED: GLUCAGON,HUMAN RECOMB 1 MG INJ SUBCUT PRN (09:54)
[2017-11-17] MEDS ORDERED: DEXTROSE 50%-WATER 25 GM/50 ML DISP.SYRIN IV PRN ×2 (09:54)
[2017-11-17] MEDS ORDERED: DEXTROSE 40% GEL 15 GM TUBE PO PRN ×2 (09:54)
[2017-11-17] MEDS ORDERED: NORMAL SALINE 1000 ML 1,000 ML IV PRN (09:55)
[2017-11-17] MEDS ORDERED: ENOXAPARIN SODIUM INJ 40 MG/0.4 ML DISP.SYRIN SUBCUT SCH (10:00)
--- NOTE | 2017-11-17 10:11 | PDOC PROGRESS REPORT ---
Subjective Progress Note for:: 11/17/17 Subjective:: Patient had full liquid breakfast, still feels bloated, passing flatus Reason For Visit: DYSKENESIA SMALL BOWEL Physical Exam Vital Signs: Temp Pulse Resp BP Pulse Ox 99.3 F 80 16 126/61 H 96 11/17/17 00:24 11/17/17 00:24 11/17/17 00:24 11/17/17 00:24 11/17/17 00:24 Intake & Output 11/16/17 11/17/17 11/18/17 06:59 06:59 06:59 Intake Total 1250 Output Total 200 Balance 1050 Weight 51.3 kg Respiratory exam: PRESENT: clear to auscultation everardo Cardiovascular exam: PRESENT: RRR GI/Abdominal exam: PRESENT: distended, firm, tenderness - in midabdomen Results Laboratory Results: 11/17/17 04:17 11/17/17 04:17 11/17/17 11/17/17 04:17 04:17 WBC 8.6 RBC 3.35 L Hgb 9.8 L Hct 29.3 L MCV 88 MCH 29.4 MCHC 33.5 RDW 13.1 Plt Count 365 Seg Neutrophils % 66.2 Lymphocytes % 20.1 Monocytes % 10.0 Eosinophils % 2.6 Basophils % 1.1 Absolute Neutrophils 5.7 Absolute Lymphocytes 1.7 Absolute Monocytes 0.9 Absolute Eosinophils 0.2 Absolute Basophils 0.1 Sodium 139.6 Potassium 3.6 Chloride 108 H Carbon Dioxide 26 Anion Gap 6 BUN 6 L Creatinine 0.47 L Est GFR ( Amer) > 60 Est GFR (Non-Af Amer) > 60 Glucose 71 L Calcium 8.1 L Phosphorus 3.0 Magnesium 1.9 Impressions: Abdomen/Pelvis CT 11/16/17 00:00 IMPRESSION: 1. There are 4.9 cm diameter dilated loops of small bowel with air-fluid levels, and small ascites. Differential diagnosis includes low-grade obstruction and ileus. 2. Indeterminate 2 cm right adrenal lesion. Recommend dedicated MRI of the adrenals. Acute Abdomen Series 11/17/17 06:00 IMPRESSION: PERSISTENT DISTENDED SMALL BOWEL LOOPS WITH CONTRAST NOW IN THE COLON CONSISTENT WITH AN INCOMPLETE DISTAL SMALL BOWEL OBSTRUCTION. Assessment & Plan - Diagnosis (1) Mechanical gastrointestinal obstruction Is this a current diagnosis for this admission?: Yes - Plan Summary Plan Summary: A/ Despite passing flatus and tolerating diet, patient still feels bloated X-ray done today shows persistent distended loop of small bowel, oral contrast in colon patient still presents with similar symptoms she had during the previous admission (bloating, occasional obstipation, distended small bowl loops P/ Based upon the P.E. 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 These symptoms are causing moderately severe discomfort to the patient and prompting multiple admissions. I believe the patent would benefit from exploratory laparotomy, possible lysis of adhesions, possible bowel resection Procedure, risks, benefits, complications have been discussed with the patient, she understands all the above, her questions were answered, and she decides to proceed.
[2017-11-17] MEDS ORDERED: LIDOCAINE 2% JELLY 30 ML TUBE TOP ONE (12:30)
[2017-11-17] MEDS ORDERED: LORAZEPAM INJ 2 MG/1 ML VIAL IV PRN (15:15)
[2017-11-17] MEDS ORDERED: PHARMACY COMMUNICATION ORDER MC NR ×2 (16:30→22:45)
[2017-11-17] MEDS: ONDANSETRON HCL INJ/PF 4 MG/2 ML SDV IV PRN (21:43)
[2017-11-17] MEDS ORDERED: LIDOCAINE 2% JELLY 30 ML TUBE ONE (22:15)
--- NOTE | 2017-11-17 22:22 | EKG REPORT ---
SEVERITY:- BORDERLINE ECG - SINUS RHYTHM SHORT NV INTERVAL, ACCELERATED AV CONDUCTION LOW VOLTAGE IN FRONTAL LEADS BORDERLINE T ABNORMALITIES, ANT-LAT LEADS : Confirmed by: Ellis Marquez 17-Nov-2017 22:21:32
[2017-11-17] MEDS ORDERED: DEXTROSE 40% GEL 15 GM TUBE NG PRN ×2 (23:00)
[2017-11-17] MEDS ORDERED: MAGNESIUM HYDROXIDE SUSP 30 ML UDCUP NG SCH (23:00)
[2017-11-17] MEDS ORDERED: ACETAMINOPHEN 325 MG TABLET NG PRN (23:00)
--- NOTE | 2017-11-17 23:34 | RADIOLOGY REPORT (SQ) ---
EXAM DESCRIPTION: KUB/ABDOMEN (SINGLE VIEW) CLINICAL HISTORY: 72 years, Female, Check Placement of NG Tube COMPARISON: None. NUMBER OF VIEWS: 1 LIMITATIONS: None. FINDINGS: Adequate appearing enteric tube with tip at the left upper abdominal quadrant stomach proximal port just below the diaphragms. Moderate dextroconvexity at the thoracolumbar junction. Mild gaseous jejunal dilation measures 3.2 cm diameter, nonspecific. IMPRESSION: Enteric tube. Mild small bowel dilation, nonspecific.
[2017-11-17] MEDS ORDERED: LIDOCAINE 2% JELLY 30 ML TUBE MM ONE (23:45)
[2017-11-18] MEDS: POTASSI CL 20 MEQ/D5NS 1L 1000 ML IV PRN ×3 (07:21→21:56)
[2017-11-18] MEDS: FAMOTIDINE INJ/PF 20 MG/2 ML SDV IV SCH ×2 (09:03→21:55)
--- NOTE | 2017-11-18 09:50 | PDOC PROGRESS REPORT ---
Subjective Progress Note for:: 11/18/17 Subjective:: Patient reports improved abdominal symptoms after NGT placed yesterday; flatus present, no stools Reason For Visit: DYSKENESIA SMALL BOWEL Physical Exam Vital Signs: Temp Pulse Resp BP Pulse Ox 98.0 F 90 15 166/88 H 95 11/18/17 07:30 11/18/17 07:30 11/18/17 07:30 11/18/17 07:30 11/18/17 07:30 Intake & Output 11/17/17 11/18/17 11/19/17 06:59 06:59 06:59 Intake Total 1250 2820 Output Total 200 Balance 1050 2820 Weight 51.3 kg 52 kg General appearance: PRESENT: cooperative Respiratory exam: PRESENT: clear to auscultation everardo Cardiovascular exam: PRESENT: RRR GI/Abdominal exam: PRESENT: diminished bowel sounds, distended Results Laboratory Results: 11/17/17 04:17 11/17/17 04:17 Impressions: Abdomen/Pelvis CT 11/16/17 00:00 IMPRESSION: 1. There are 4.9 cm diameter dilated loops of small bowel with air-fluid levels, and small ascites. Differential diagnosis includes low-grade obstruction and ileus. 2. Indeterminate 2 cm right adrenal lesion. Recommend dedicated MRI of the adrenals. Acute Abdomen Series 11/17/17 06:00 IMPRESSION: PERSISTENT DISTENDED SMALL BOWEL LOOPS WITH CONTRAST NOW IN THE COLON CONSISTENT WITH AN INCOMPLETE DISTAL SMALL BOWEL OBSTRUCTION. KUB X-Ray 11/17/17 22:33 IMPRESSION: Enteric tube. Mild small bowel dilation, nonspecific. Assessment & Plan - Diagnosis (1) Enteritis Is this a current diagnosis for this admission?: Yes - Plan Summary Plan Summary: A/ patient symptoms have improved after NGT placement and bowel rest Flatus present NGT output scant Patient's films reviewed with on-call Radiologist last night: no evidence of mechanical obstruction or surgical condition, therefore surgery has been cancelled; rather, it appears that the patient is suffering from a localized form of enteritis of unknown cause which will not benefit from an operation P/ continue NGT/bowel rst blood work tomorrow Call placed to [facility] for GI phone consult/transfer
[2017-11-18] MEDS ORDERED: METOCLOPRAMIDE HCL INJ/PF 10 MG/2 ML SDV IV ONE (10:00)
[2017-11-18] MEDS ORDERED: ACETAMINOPHEN 325 MG TABLET PO PRN (10:27)
[2017-11-18] MEDS ORDERED: ACETAMINOPHEN 650 MG SUPP.RECT PR PRN (10:28)
[2017-11-18] MEDS ORDERED: PEG 3350/NA SULF,BICARB,CL/KCL 4000 ML NG ONE (13:00)
[2017-11-18] MEDS ORDERED: BISACODYL 5 MG TABEC PO ONE (13:00)
[2017-11-18] MEDS: ONDANSETRON HCL INJ/PF 4 MG/2 ML SDV IV PRN ×2 (13:13→19:19)
[2017-11-18] MEDS: METOCLOPRAMIDE HCL INJ/PF 10 MG/2 ML SDV IV SCH ×2 (15:46→21:55)
[2017-11-19] MEDS: METOCLOPRAMIDE HCL INJ/PF 10 MG/2 ML SDV IV SCH ×4 (04:46→20:41)
[2017-11-19] MEDS: POTASSI CL 20 MEQ/D5NS 1L 1000 ML IV PRN ×3 (04:47→21:54)
[2017-11-19 05:04] LABS: ABSOLUTE BASOPHILS # (AUTO) 0.1 10^3/uL (0.0-0.2); ABSOLUTE EOSINOPHILS # (AUTO) 0.3 10^3/uL (0.0-0.6); ABSOLUTE LYMPHOCYTES (AUTO) 1.2 10^3/uL (0.5-4.7); ABSOLUTE MONOCYTES (AUTO) 0.8 10^3/uL (0.1-1.4); ABSOLUTE NEUT (AUTO) 6.9 10^3/uL (1.7-8.2); BASOPHILS % (AUTO) 1.1 % (0-2); HEMATOCRIT 34.8 % (36.0-47.0); HEMOGLOBIN 11.4 g/dL (12.0-15.5); LYMPHOCYTES % (AUTO) 13.3 % (13-45); MEAN CORPUSCULAR HEMOGLOBIN 28.6 pg (27.0-33.4); MEAN CORPUSCULAR HGB CONC 32.7 g/dL (32.0-36.0); MEAN CORPUSCULAR VOLUME 88 fl (80-97); MONOCYTES % (AUTO) 8.1 % (3-13); PLATELET COUNT 474 10^3/uL (150-450); RED BLOOD COUNT 3.97 10^6/uL (3.72-5.28); RED CELL DISTRIBUTION WIDTH 13.6 % (11.5-14.0); SEGMENTED NEUTROPHILS % (AUTO) 74.5 % (42-78); TOTAL CELLS COUNTED % (AUTO) 100 %; WHITE BLOOD COUNT 9.3 10^3/uL (4.0-10.5)
[2017-11-19 05:29] LABS: ANION GAP 7 (5-19); BLOOD UREA NITROGEN 2 mg/dL (7-20); CALCIUM 8.9 mg/dL (8.4-10.2); CARBON DIOXIDE 27 mmol/L (22-30); CHLORIDE 105 mmol/L (98-107); GLUCOSE 132 mg/dL (75-110); POTASSIUM 3.9 mmol/L (3.6-5.0); SODIUM 138.7 mmol/L (137-145)
[2017-11-19] MEDS: FAMOTIDINE INJ/PF 20 MG/2 ML SDV IV SCH ×2 (11:37→21:54)
--- NOTE | 2017-11-19 12:04 | RADIOLOGY REPORT (SQ) ---
EXAM DESCRIPTION: CT PELVIS WITHOUT COMPLETED DATE/TIME: 11/19/2017 11:43 am REASON FOR STUDY: SBO COMPARISON: CT abdomen pelvis 11/09/2017, 11/16/2017 GI small bowel study 11/19/2017 TECHNIQUE: CT scan of the pelvis performed during the small-bowel follow-through study with Gastrogr afin contrast instilled through the patient's nasogastric tube. These additional CT images are at no additional cost to the patient. CT imaging was obtained midway through a small-bowel follow-through study to demonstrate pathology in the deep right pelvis. Images reviewed with soft tissue and bone windows. Reconstructed coronal and sagittal MPR images rev iewed. All images stored on PACS. All CT scanners at this facility use dose modulation, iterative reconstruction, and/or weight based d osing when appropriate to reduce radiation dose to as low as reasonably achievable (ALARA). [facility]: Dose Right [facility]: CareDose [facility]: Dose Right [facility]: Teradose 4D [facility]: Delivered RADIATION DOSE: CT Rad equipment meets quality standard of care and radiation dose reduction techniq ues were employed. CTDIvol: 4.3 mGy. DLP: 163 mGy-cm. mGy. LIMITATIONS: None. FINDINGS: Proximal and mid small bowel loops are dilated with thin barium. On axial images 37-45, sagittal images 31-43, and coronal reconstruction images 45-71, a primary smal l bowel mass is present, measuring at least 7 cm in length by 6 cm in greatest transverse diameter. There is an abrupt transition point at the level of the mass between dilated proximal small bowel loo ps and nondilated distal small bowel loops. A trace amount of contrast passes through the mass and i nto decompressed distal ileum. Mass is about 20 cm from the ileocecal valve. Remainder of today's pelvis images demonstrate no free pelvic fluid. Female pelvic organs are still present bony structures in the field of view are unremarkable. Findings discussed with Dr. 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 TECHNICAL DOCUMENTATION: JOB ID: [id number] Quality ID # [id number]: Final reports with documentation of one or more dose reduction techniques (e.g., Au tomated exposure control, adjustment of the mA and/or kV according to patient size, use of iterative reconstruction technique) 2010 [employer]- All Rights Reserved
--- NOTE | 2017-11-19 12:09 | RADIOLOGY REPORT (SQ) ---
EXAM DESCRIPTION: UPPER GI/SM BOWEL COMPLETED DATE/TIME: 11/19/2017 REASON FOR STUDY: r/o mechanical SBO, UGI WITH SBFT PER PROGRESS NOTES COMPARISON: None TECHNIQUE: Gastrografin was instilled through the patient's pre-existing nasogastric tube while bein g imaged with digital spot and plain films. Patient was followed up to 2 hours with serial films. C T scan of the pelvis was also obtained, dictated separately at no additional charge to the patient to clarify the etiology of a bowel obstruction. RADIATION DOSE: 0.8 minutes 23 digital images saved to PACS. LIMITATIONS: None FINDINGS: Panel Wirer film demonstrates markedly dilated small bowel loops. There is a small amount of ai r in the transverse colon and splenic flexure. Nasogastric tube tip and side port in the stomach. 480 mL of Gastrografin was gradually instilled into the patient's stomach through the pre-existing na sogastric tube. Throughout the study there was gastroesophageal reflux to the cervical esophagus. A s soon as the study was terminated, the patient's NG tube was placed back to suction. There is a small hiatal hernia with Schatzki's ring formation. Gastric emptying into dilated jejunal and ileal loops. By 2 hours, dilated loops filled with Gastrografin were present all way through to the pelvis. At this point, a limited CT scan of the pelvis was performed, this demonstrates that th e cause of the small bowel obstruction is a mass in the deep right pelvis worrisome for primary small bowel tumor. Gastrografin tracks through the lumen of the tumor and fills nondistended distal ileum near the ileocecal valve. Findings discussed with Dr. 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 This is causing a high-grade partial small bowel obstruction. Tumor is best shown on accompanying CT pelvis. Gastroesophageal reflux to the cervical esophagus. When the study was concluded, the nasogastric tub e was hooked back to suction. COMMENT: Quality ID [id number]: Final reports for procedures using fluoroscopy that document radiation exp osure indices, or exposure time and number of fluorographic images (if radiation exposure indices are not available) TECHNICAL DOCUMENTATION: JOB ID: [id number] [employer]- All Rights Reserved
--- NOTE | 2017-11-19 17:26 | PDOC PROGRESS REPORT ---
Subjective Progress Note for:: 11/19/17 Reason For Visit: DYSKENESIA SMALL BOWEL Hospital day 3 for the patient with recurrent small bowel obstruction. Patient underwent upper GI with small bowel follow-through which showed an area of tight stenosis in the mid to distal small bowel, followed up by a CT scan which showed string sign of contrast moving through the mass in the pelvis consistent with a possible small bowel tumor. Patient continues to drain from the nasogastric tube. She does report having stool yesterday, loose Physical Exam Vital Signs: Temp Pulse Resp BP Pulse Ox 98.4 F 86 18 142/73 H 96 11/19/17 15:51 11/19/17 15:51 11/19/17 15:51 11/19/17 15:51 11/19/17 15:51 Intake & Output 11/18/17 11/19/17 11/20/17 06:59 06:59 06:59 Intake Total 2820 3500 0 Balance 2820 3500 0 Weight 52 kg 50.9 kg General appearance: PRESENT: mild distress Head exam: PRESENT: normocephalic Eye exam: PRESENT: EOMI GI/Abdominal exam: PRESENT: other - Still distended distally minimally tender hypoactive bowel sounds. Results Laboratory Results: 11/19/17 04:24 11/19/17 04:24 11/19/17 11/19/17 04:24 04:24 WBC 9.3 RBC 3.97 Hgb 11.4 L Hct 34.8 L MCV 88 MCH 28.6 MCHC 32.7 RDW 13.6 Plt Count 474 H Seg Neutrophils % 74.5 Lymphocytes % 13.3 Monocytes % 8.1 Eosinophils % 3.0 Basophils % 1.1 Absolute Neutrophils 6.9 Absolute Lymphocytes 1.2 Absolute Monocytes 0.8 Absolute Eosinophils 0.3 Absolute Basophils 0.1 Sodium 138.7 Potassium 3.9 Chloride 105 Carbon Dioxide 27 Anion Gap 7 BUN 2 L Creatinine 0.47 L Est GFR ( Amer) > 60 Est GFR (Non-Af Amer) > 60 Glucose 132 H Calcium 8.9 Impressions: Abdomen/Pelvis CT 11/16/17 00:00 IMPRESSION: 1. There are 4.9 cm diameter dilated loops of small bowel with air-fluid levels, and small ascites. Differential diagnosis includes low-grade obstruction and ileus. 2. Indeterminate 2 cm right adrenal lesion. Recommend dedicated MRI of the adrenals. Acute Abdomen Series 11/17/17 06:00 IMPRESSION: PERSISTENT DISTENDED SMALL BOWEL LOOPS WITH CONTRAST NOW IN THE COLON CONSISTENT WITH AN INCOMPLETE DISTAL SMALL BOWEL OBSTRUCTION. KUB X-Ray 11/17/17 22:33 IMPRESSION: Enteric tube. Mild small bowel dilation, nonspecific. Pelvis CT 11/19/17 00:00 IMPRESSION: Findings of a malignant appearing distal small bowel mass within 20 cm of the ileocecal valve deep in the right pelvis causing high-grade partial small bowel obstruction. 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 This is causing a high-grade partial small bowel obstruction. Tumor is best shown on accompanying CT pelvis. Gastroesophageal reflux to the cervical esophagus. When the study was concluded , the nasogastric tube was hooked back to suction. 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 Patient is getting contrast through this napkin ring type stenosis. Studies reviewed with luis Lomax. Other malignancy including gynecologic organ also to be considered but less likely. Her graft Recommendations: 1. She is not in extremis, require surgery soon to relieve this obstruction. 2. Given the tumor location deep in the pelvis, nutrition of the patient, and need for prolonged hospitalization, I feel the patient to be transferred to tertiary care level institution with an deeper breath of surgical, oncologic and other subspecialty support. I explained this to the patient and I believe she understands and agrees to proceed. 3. I spoke with Dr. Randy Colon, [facility] is agreed to accept the patient. The receiving institution does not have a bed available yet but hopefully one will open up soon. - Time Time Spent with patient: 25-34 minutes Smoking Cessation Education: over 10 minutes
[2017-11-19] MEDS: KETOROLAC TROMETHAMINE INJ/PF 30 MG/1 ML SDV IV PRN (18:07)
[2017-11-20] MEDS: METOCLOPRAMIDE HCL INJ/PF 10 MG/2 ML SDV IV SCH ×4 (02:41→20:23)
[2017-11-20] MEDS: POTASSI CL 20 MEQ/D5NS 1L 1000 ML IV PRN (06:21)
[2017-11-20] MEDS: KETOROLAC TROMETHAMINE INJ/PF 30 MG/1 ML SDV IV PRN (06:21)
[2017-11-20 07:16] LABS: ABSOLUTE BASOPHILS # (AUTO) 0.1 10^3/uL (0.0-0.2); ABSOLUTE EOSINOPHILS # (AUTO) 0.3 10^3/uL (0.0-0.6); ABSOLUTE LYMPHOCYTES (AUTO) 1.4 10^3/uL (0.5-4.7); ABSOLUTE NEUT (AUTO) 8.3 10^3/uL (1.7-8.2); EOSINOPHILS % (AUTO) 2.7 % (0-6); HEMOGLOBIN 11.7 g/dL (12.0-15.5); LYMPHOCYTES % (AUTO) 12.7 % (13-45); MEAN CORPUSCULAR HEMOGLOBIN 28.5 pg (27.0-33.4); MEAN CORPUSCULAR HGB CONC 32.5 g/dL (32.0-36.0); MEAN CORPUSCULAR VOLUME 88 fl (80-97); MONOCYTES % (AUTO) 9.3 % (3-13); PLATELET COUNT 566 10^3/uL (150-450); RED BLOOD COUNT 4.11 10^6/uL (3.72-5.28); SEGMENTED NEUTROPHILS % (AUTO) 74.3 % (42-78); TOTAL CELLS COUNTED % (AUTO) 100 %; WHITE BLOOD COUNT 11.1 10^3/uL (4.0-10.5)
[2017-11-20 07:42] LABS: ANION GAP 6 (5-19); BLOOD UREA NITROGEN 5 mg/dL (7-20); CALCIUM 9.3 mg/dL (8.4-10.2); CARBON DIOXIDE 29 mmol/L (22-30); CHLORIDE 112 mmol/L (98-107); GLUCOSE 108 mg/dL (75-110); POTASSIUM 4.4 mmol/L (3.6-5.0); SODIUM 146.6 mmol/L (137-145)
--- NOTE | 2017-11-20 10:19 | PDOC PROGRESS REPORT ---
Subjective Progress Note for:: 11/20/17 Subjective:: patient appears depressed, denies abdominal pain, reports some flatus Reason For Visit: DYSKENESIA SMALL BOWEL Physical Exam Vital Signs: Temp Pulse Resp BP Pulse Ox 98.3 F 79 18 140/64 H 96 11/20/17 08:25 11/20/17 08:25 11/20/17 08:25 11/20/17 08:25 11/20/17 08:25 Intake & Output 11/19/17 11/20/17 11/21/17 06:59 06:59 06:59 Intake Total 3500 3000 Output Total 400 Balance 3500 2600 Weight 50.9 kg 50.9 kg General appearance: PRESENT: other - depressed Respiratory exam: PRESENT: clear to auscultation everardo Cardiovascular exam: PRESENT: RRR GI/Abdominal exam: PRESENT: soft Results Laboratory Results: 11/20/17 06:27 11/20/17 06:27 11/20/17 11/20/17 06:27 06:27 WBC 11.1 H RBC 4.11 Hgb 11.7 L Hct 36.0 MCV 88 MCH 28.5 MCHC 32.5 RDW 14.0 Plt Count 566 H Seg Neutrophils % 74.3 Lymphocytes % 12.7 L Monocytes % 9.3 Eosinophils % 2.7 Basophils % 1.0 Absolute Neutrophils 8.3 H Absolute Lymphocytes 1.4 Absolute Monocytes 1.0 Absolute Eosinophils 0.3 Absolute Basophils 0.1 Sodium 146.6 H Potassium 4.4 Chloride 112 H Carbon Dioxide 29 Anion Gap 6 BUN 5 L Creatinine 0.50 L Est GFR ( Amer) > 60 Est GFR (Non-Af Amer) > 60 Glucose 108 Calcium 9.3 Impressions: Abdomen/Pelvis CT 11/16/17 00:00 IMPRESSION: 1. There are 4.9 cm diameter dilated loops of small bowel with air-fluid levels, and small ascites. Differential diagnosis includes low-grade obstruction and ileus. 2. Indeterminate 2 cm right adrenal lesion. Recommend dedicated MRI of the adrenals. Acute Abdomen Series 11/17/17 06:00 IMPRESSION: PERSISTENT DISTENDED SMALL BOWEL LOOPS WITH CONTRAST NOW IN THE COLON CONSISTENT WITH AN INCOMPLETE DISTAL SMALL BOWEL OBSTRUCTION. KUB X-Ray 11/17/17 22:33 IMPRESSION: Enteric tube. Mild small bowel dilation, nonspecific. Pelvis CT 11/19/17 00:00 IMPRESSION: Findings of a malignant appearing distal small bowel mass within 20 cm of the ileocecal valve deep in the right pelvis causing high-grade partial small bowel obstruction. 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 This is causing a high-grade partial small bowel obstruction. Tumor is best shown on accompanying CT pelvis. Gastroesophageal reflux to the cervical esophagus. When the study was concluded , the nasogastric tube was hooked back to suction. Assessment & Plan - Diagnosis (1) Small bowel tumor Is this a current diagnosis for this admission?: Yes - Plan Summary Plan Summary: A/ Distal small bowel tumor on UGI/SBFT done yesterday flatus present Patient appears depressed and weak Moderate output from NGT Blood work within normal limits P/ Patient scheduled to be transferred to [facility] according to their bed availability PICC line today start TPN as ordered Keep IVF total 125 mL/hr (TPN/crystalloids)
[2017-11-20] MEDS ORDERED: INSULIN REG, HUMAN 100 UNIT/ML 3 ML VIAL (PYX) SUBCUT PRN (11:02)
[2017-11-20] MEDS ORDERED: DEXTROSE 10%-WATER 1,000 ML IV PRN (11:02)
[2017-11-20] MEDS: FAMOTIDINE INJ/PF 20 MG/2 ML SDV IV SCH (11:07)
[2017-11-20] MEDS ORDERED: ACETAMINOPHEN 325 MG TABLET NG PRN (11:30)
--- NOTE | 2017-11-20 11:59 | TRANSFER SUMMARY E ---
Transfer Summary NAME: ALEJANDRA BHAKTA : 1945 AGE: 72Y ADMITTED: 11/16/2017 TRANSFERRED: 11/20/2017 FINAL DIAGNOSES: 1. Terminal ileum mass. 2. Partial mechanical small bowel obstruction. PROCEDURE: None. HOSPITAL COURSE: This is a 72-year-old white female who presented to our hospital on November 16 shortly after she was discharged from the hospital following a previous admission on November 09. The patient came to the hospital with a complaint of abdominal distension, nausea, vomiting, and obstipation. During the emergency room evaluation, the patient underwent CT scan of the abdomen and pelvis revealing a few loops of small bowel which were severely distended as per bowel obstruction. The patient was admitted. A nasogastric tube could not be inserted. She was kept n.p.o. on IV fluids. The following day the patient presented with some flatus and her diet was initially advanced to clear liquids, which was poorly tolerated. Repeated the abdominal obstructive series revealed persistently and severely distended small loops of bowel. A nasogastric was inserted with moderate return. On November 19, the patient underwent an upper GI with small bowel follow through as well as a CT scan of the pelvis with IV and oral contrast. Both tests revealed the presence of a terminal ileum mass which caused a partial mechanical small bowel obstruction. The patient was kept n.p.o. on IV fluids. The patient was then transferred to [facility] on November 20, 2017 for further surgical care. DICTATING PHYSICIAN: HARRISON HELLER M.D. [id number] PHY#: [id number] ID: [id number] JOB#: [id number] ACCT: [id number] cc:HARRISON HELLER M.D. > MTDD
[2017-11-20 12:15] LABS: INTERNATIONAL RATION (INR) 1.03; PROTHROMBIN TIME 14.2 SEC (11.4-15.4)
[2017-11-20 12:16] LABS: PARTIAL THROMBOPLASTIN TIME 27.8 SEC (23.5-35.8)
[2017-11-20 12:30] LABS: ALANINE AMINOTRANSFERASE 36 U/L (9-52); ALKALINE PHOSPHATASE 53 U/L (38-126); ASPARTATE AMINO TRANSFERASE 19 U/L (14-36); BILIRUBIN,DIRECT 0.2 mg/dL (0.0-0.4); BILIRUBIN,TOTAL 0.4 mg/dL (0.2-1.3); MAGNESIUM 1.9 mg/dL (1.6-2.3); PHOSPHORUS 3.1 mg/dL (2.5-4.5); TRIGLYCERIDES 74 mg/dL (<150)
[2017-11-20 12:37] LABS: PREALBUMIN 10.5 mg/dL (17.6-36.0)
[2017-11-20] MEDS ORDERED: NORMAL SALINE 10 ML SDV (AFTER EACH USE) IV PRN (13:47)
--- NOTE | 2017-11-20 15:19 | RADIOLOGY REPORT (SQ) ---
EXAM DESCRIPTION: FLUORO/CV PLACEMENT; U/S GUIDE FOR VASCULAR ACCESS; PICC INSERTION COMPLETED DATE/TIME: 11/20/2017 1:53 pm; 11/20/2017 3:07 pm REASON FOR STUDY: SB TUMOR,TPN; SB TUMOR, TPN; SMALL BOWEL MASS, NEEDS TPN COMPARISON: Chest film 11/17/2017 FLUOROSCOPY TIME: 5 seconds 1 ultrasound and 1 digital chest image saved to PACS. TECHNIQUE: Fluoroscopic and ultrasound guided PICC placement. LIMITATIONS: None. PROCEDURE: After written consent and assessment were obtained, the patient was brought into the fluo roscopy room and place supine on the table. Ultrasound was used on the patient's left arm for PICC a ccess. The left arm was prepped and draped in a sterile fashion along with the ultrasound probe. The entry site was anesthetized with 1% lidocaine. A 21 gauge 7 cm needle was advanced through the skin a nd into the basilic vein under live ultrasound guidance. An ultrasound image was saved to PACS confi rming access site. A .018 guide wire was then inserted through the needle and into the venous system . The needle was the removed and an 11 blade scalpel was used to make a 1cm skin incision. A 5 fr pe el-away sheath was advanced over the wire and into the venous system. A measurement was then made usi ng the existing wire and live fluoroscopic guidance. The wire was then removed and the trimmed. The P ICC was advanced through the peel-away sheath and into the venous system. The peel-away sheath was re moved and the catheter was adhered to the patients arm with a stat lock. The catheter was then aspira higinio and flushed and a sterile bandage was placed over the access site. A fluoroscopic spot image was saved to PACS confirming the catheter tip within the superior vena cava. IMPRESSION: SUCCESSFUL PLACEMENT OF A 5 FR DUAL LUMEN 41 CM PICC IN THE LEFT BASILIC VEIN. COMMENT: Patient medication list reviewed: Yes- Quality ID# 130:Eligible professional attests to doc umenting in the medical record they obtained, updated, or reviewed the patient's current medications. . Quality ID 145: Final reports for procedures using fluoroscopy that document radiation exposure selene dayton, or exposure time and number of fluorographic images (if radiation exposure indices are not avail able) Quality ID #76: The patient was prepped and draped using maximum sterile barrier technique including cap, mask, sterile gown, sterile gloves, a large sterile sheet, hand hygiene, and 2% Chlorhexidine fo r cutaneous antisepsis. When ultrasound is used, sterile ultrasound techniques are followed requiring sterile gel and sterile probes. TECHNICAL DOCUMENTATION: JOB ID: [id number] [employer]- All Rights Reserved
[2017-11-20] MEDS: AMINO ACIDS 5%/D25W 1,000 ML IV PRN (17:26)
[2017-11-20] MEDS: NORMAL SALINE 1000 ML 1,000 ML IV PRN (17:26)
[2017-11-20] MEDS: NORMAL SALINE 10 ML SDV (SCHEDULED) IV SCH (21:55)
[2017-11-21] MEDS: METOCLOPRAMIDE HCL INJ/PF 10 MG/2 ML SDV IV SCH ×3 (03:52→15:14)
[2017-11-21 06:30] LABS: ABSOLUTE BASOPHILS # (AUTO) 0.1 10^3/uL (0.0-0.2); ABSOLUTE EOSINOPHILS # (AUTO) 0.4 10^3/uL (0.0-0.6); ABSOLUTE LYMPHOCYTES (AUTO) 1.3 10^3/uL (0.5-4.7); ABSOLUTE MONOCYTES (AUTO) 0.7 10^3/uL (0.1-1.4); ABSOLUTE NEUT (AUTO) 8.5 10^3/uL (1.7-8.2); BASOPHILS % (AUTO) 1.1 % (0-2); EOSINOPHILS % (AUTO) 3.5 % (0-6); HEMATOCRIT 33.8 % (36.0-47.0); HEMOGLOBIN 11.1 g/dL (12.0-15.5); LYMPHOCYTES % (AUTO) 11.8 % (13-45); MEAN CORPUSCULAR HEMOGLOBIN 28.6 pg (27.0-33.4); MEAN CORPUSCULAR HGB CONC 32.8 g/dL (32.0-36.0); MEAN CORPUSCULAR VOLUME 87 fl (80-97); MONOCYTES % (AUTO) 6.2 % (3-13); PLATELET COUNT 499 10^3/uL (150-450); RED BLOOD COUNT 3.87 10^6/uL (3.72-5.28); RED CELL DISTRIBUTION WIDTH 13.6 % (11.5-14.0); SEGMENTED NEUTROPHILS % (AUTO) 77.4 % (42-78); TOTAL CELLS COUNTED % (AUTO) 100 %
[2017-11-21 06:46] LABS: ALANINE AMINOTRANSFERASE 31 U/L (9-52); ALBUMIN 2.9 g/dL (3.5-5.0); ALKALINE PHOSPHATASE 51 U/L (38-126); ANION GAP 9 (5-19); ASPARTATE AMINO TRANSFERASE 18 U/L (14-36); BILIRUBIN,DIRECT 0.2 mg/dL (0.0-0.4); BILIRUBIN,TOTAL 0.3 mg/dL (0.2-1.3); BLOOD UREA NITROGEN 6 mg/dL (7-20); CALCIUM 8.6 mg/dL (8.4-10.2); CARBON DIOXIDE 27 mmol/L (22-30); CHLORIDE 104 mmol/L (98-107); GLUCOSE 125 mg/dL (75-110); PHOSPHORUS 3.3 mg/dL (2.5-4.5); POTASSIUM 3.7 mmol/L (3.6-5.0); SODIUM 139.8 mmol/L (137-145); TOTAL PROTEIN 4.9 g/dL (6.3-8.2)
[2017-11-21 06:53] LABS: PREALBUMIN 9.7 mg/dL (17.6-36.0)
[2017-11-21] MEDS: NORMAL SALINE 10 ML SDV (SCHEDULED) IV SCH (09:56)
--- NOTE | 2017-11-21 10:47 | PDOC PROGRESS REPORT ---
Subjective Progress Note for:: 11/21/17 Subjective:: patient feels depressed and tired Reason For Visit: DYSKENESIA SMALL BOWEL Physical Exam Vital Signs: Temp Pulse Resp BP Pulse Ox 98.4 F 81 12 176/76 H 97 11/21/17 08:20 11/21/17 08:20 11/21/17 08:20 11/21/17 08:20 11/21/17 08:20 Intake & Output 11/20/17 11/21/17 11/22/17 06:59 06:59 06:59 Intake Total 3000 1500 Output Total 400 550 Balance 2600 950 Weight 50.9 kg 50.9 kg Respiratory exam: PRESENT: clear to auscultation everardo Cardiovascular exam: PRESENT: RRR GI/Abdominal exam: PRESENT: diminished bowel sounds, distended Results Laboratory Results: 11/21/17 05:45 11/21/17 05:45 11/20/17 11/21/17 11/21/17 11:58 05:45 05:45 WBC 11.0 H RBC 3.87 Hgb 11.1 L Hct 33.8 L MCV 87 MCH 28.6 MCHC 32.8 RDW 13.6 Plt Count 499 H Seg Neutrophils % 77.4 Lymphocytes % 11.8 L Monocytes % 6.2 Eosinophils % 3.5 Basophils % 1.1 Absolute Neutrophils 8.5 H Absolute Lymphocytes 1.3 Absolute Monocytes 0.7 Absolute Eosinophils 0.4 Absolute Basophils 0.1 Sodium 139.8 Potassium 3.7 Chloride 104 Carbon Dioxide 27 Anion Gap 9 BUN 6 L Creatinine 0.46 L Est GFR ( Amer) > 60 Est GFR (Non-Af Amer) > 60 Glucose 125 H Calcium 8.6 Phosphorus 3.1 3.3 Magnesium 1.9 Total Bilirubin 0.4 0.3 AST 19 18 ALT 36 31 Alkaline Phosphatase 53 51 Total Protein 5.0 L 4.9 L Albumin 3.0 L 2.9 L Prealbumin 10.5 L 9.7 L Triglycerides 74 Impressions: Abdomen/Pelvis CT 11/16/17 00:00 IMPRESSION: 1. There are 4.9 cm diameter dilated loops of small bowel with air-fluid levels, and small ascites. Differential diagnosis includes low-grade obstruction and ileus. 2. Indeterminate 2 cm right adrenal lesion. Recommend dedicated MRI of the adrenals. Acute Abdomen Series 11/17/17 06:00 IMPRESSION: PERSISTENT DISTENDED SMALL BOWEL LOOPS WITH CONTRAST NOW IN THE COLON CONSISTENT WITH AN INCOMPLETE DISTAL SMALL BOWEL OBSTRUCTION. KUB X-Ray 11/17/17 22:33 IMPRESSION: Enteric tube. Mild small bowel dilation, nonspecific. Pelvis CT 11/19/17 00:00 IMPRESSION: Findings of a malignant appearing distal small bowel mass within 20 cm of the ileocecal valve deep in the right pelvis causing high-grade partial small bowel obstruction. 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 This is causing a high-grade partial small bowel obstruction. Tumor is best shown on accompanying CT pelvis. Gastroesophageal reflux to the cervical esophagus. When the study was concluded , the nasogastric tube was hooked back to suction. Guidance Fluoroscopy 11/20/17 00:00 IMPRESSION: SUCCESSFUL PLACEMENT OF A 5 FR DUAL LUMEN 41 CM PICC IN THE LEFT BASILIC VEIN. Interventional Vascular Procedure 11/20/17 00:00 IMPRESSION: SUCCESSFUL PLACEMENT OF A 5 FR DUAL LUMEN 41 CM PICC IN THE LEFT BASILIC VEIN. PICC Line Insertion 11/20/17 00:00 IMPRESSION: SUCCESSFUL PLACEMENT OF A 5 FR DUAL LUMEN 41 CM PICC IN THE LEFT BASILIC VEIN. Assessment & Plan - Diagnosis (1) Small bowel tumor Is this a current diagnosis for this admission?: Yes - Plan Summary Plan Summary: A/ Small bowel terminal ileum mass partial mechanical SBO P/ Continue TPN via PICC line Continue NGT Plan to transfer patient to [facility] for final treatment
[2017-11-21] MEDS: AMINO ACIDS 5%/D25W 1,000 ML IV PRN (18:25)
[2017-11-21] MEDS: NORMAL SALINE 1000 ML 1,000 ML IV PRN (18:26)
[2017-11-21 18:49] VITALS: BP 145/87
[2017-11-22] MEDS ORDERED: FAT EMULSIONS 250 ML IV SCH (10:00)
== END 2017-11-21 19:51 | disposition short-term general hospital (02) | DRG 390 ==
LOC: ER 01:50 → EH 07:36 → 5 14:36
PROVIDERS: ADMIT Surgery; ATTEND Surgery
PROC: 0D9670Z Drainage of Stomach with Drainage Device, Via Natural or Artificial Opening (ICD-10-PCS; principal; 2017-11-18)
PROC: 02HV33Z Insertion of Infusion Device into Superior Vena Cava, Percutaneous Approach (ICD-10-PCS; 2017-11-20)
PROC: B548ZZA Ultrasonography of Superior Vena Cava, Guidance (ICD-10-PCS; 2017-11-20)
PROC: B5181ZA Fluoroscopy of Superior Vena Cava using Low Osmolar Contrast, Guidance (ICD-10-PCS; 2017-11-20)
DX: K56.690 Other partial intestinal obstruction (principal); K59.8 Other specified functional intestinal disorders; K21.9 Gastro-esophageal reflux disease without esophagitis; Z80.0 Family history of malignant neoplasm of digestive organs
CPT/HCPCS: 36415; 36569; 72192; 74018; 74022; 74177; 74249; 76937; 77001; 80048; 80053; 80076; 81001; 82962; 83690; 83735; 84100; 84134; 84478; 85025; 85610; 85730; 87493; 93005; 93010; 96361; 96374; 96375; 99285; J1642; J1650; J1885; J2060; J2270; J2405; J2765; J3480; J3490; J7030; S0028

== ENCOUNTER 2018-01-30 05:24 | Day surgery (SDC) | payer MEDICARE ==
[2018-01-23 10:27] LABS: HEMATOCRIT 42.3 % (36.0-47.0); HEMOGLOBIN 13.5 g/dL (12.0-15.5); MEAN CORPUSCULAR HEMOGLOBIN 28.1 pg (27.0-33.4); MEAN CORPUSCULAR HGB CONC 31.9 g/dL (32.0-36.0); MEAN CORPUSCULAR VOLUME 88 fl (80-97); PLATELET COUNT 362 10^3/uL (150-450); RED BLOOD COUNT 4.79 10^6/uL (3.72-5.28); RED CELL DISTRIBUTION WIDTH 17.5 % (11.5-14.0); WHITE BLOOD COUNT 8.1 10^3/uL (4.0-10.5)
[~2018-01-30 05:24] MED LIST: CEFAZOLIN 1 GM/D5W RTU 1 GM/50 ML RTUPB IV PRN; LACTATED RINGERS 1000 ML IV PRN; LIDOCAINE 0.5% INJ-PF (5 MG/ML) 50 ML SDV SUBCUT PRN
[2018-01-30] MEDS ORDERED: LIDOCAINE 1% INJ-PF (10 MG/ML) 30 ML SDV ONE (06:49)
[2018-01-30] MEDS ORDERED: PROPOFOL INJ 200 MG/20 ML VIAL IV ONE (07:12)
[2018-01-30] MEDS ORDERED: MIDAZOLAM 2 MG/2 ML INJ ONE (07:12)
[2018-01-30] MEDS ORDERED: ONDANSETRON HCL INJ/PF 4 MG/2 ML SDV ONE ×2 (07:12→09:14)
[2018-01-30] MEDS ORDERED: KETAMINE HCL INJ 500 MG/10 ML VIAL ONE (07:12)
[2018-01-30] MEDS ORDERED: OXYCODONE-ACETAMINOPHEN 5-325 MG TABLET PO PRN ×3 (08:02→08:42)
[2018-01-30] MEDS ORDERED: FENTANYL CITRATE INJ/PF 100 MCG/2 ML AMPUL IV PRN ×3 (08:02)
[2018-01-30] MEDS ORDERED: MEPERIDINE HCL/PF INJ 25 MG/1 ML DISP.SYRIN IV PRN (08:02)
[2018-01-30] MEDS ORDERED: PROMETHAZINE HCL INJ 25 MG/1 ML VIAL IV PRN ×2 (08:02)
[2018-01-30] MEDS ORDERED: DIPHENHYDRAMINE HCL 50 MG/ML VIAL IV PRN (08:02)
--- NOTE | 2018-01-30 08:30 | Operative Report ---
Operative Report DATE OF SURGERY: 01/30/18 PREOPERATIVE DIAGNOSIS: Massive central posterior neck mass consistent with sebaceous cyst POSTOPERATIVE DIAGNOSIS: Same OPERATION: Complete excision of sebaceous cyst, and primary closure over drain posterior neck SURGEON: BENIGNO VEGA 1ST BUFFER CHROME: FIGUEROA DOWNS ANESTHESIA: LMAC TISSUE REMOVED OR ALTERED: Cyst contents and will COMPLICATIONS: None ESTIMATED BLOOD LOSS: Scant INTRAOPERATIVE FINDINGS: See below PROCEDURE: The patient was taken to the preop holding area the main operating room where LMAC anesthesia was induced. Patient placed in the prone position, posterior neck mass isolated, prepped and draped in sterile fashion. Surgical plan surgical timeout were conducted. The pathologic findings were significant for a multiple large approximately 12 cm diameter smooth exophytic mass arising from the subcutaneous tissue of the central neck. It was spongy consistent with either lipoma or sebaceous cyst. We anesthetized the skin 2% lidocaine dilute such that the entire envelope of skin overlying the mass was anesthetized. We made an elliptical, horizontally oriented incision over the mass, immediately got into it which was in fact a massive sebaceous cyst. All cyst contents removed. It was approximately 100- 500 cc of sebum and particulate evacuated. We excised the ellipse of skin, then excise the entire cyst sac using electrocautery with oxygen off of the patient. The cyst cavity, contents were all sent to pathology The underlying crow tissue consisted of PCS fascia, in some areas exposed trapezius muscle. Is no evidence of malignancy, lipoma or any other pathology. Large dogears on the lateral aspects of the horizontally oriented elliptical excision trimmed. A large Salvatore drain was brought through the inferior skin flap secured to the skin with 2-0 Prolene suture. The wound was closed adversely with running 2-0 Vicryl suture. The wound was then closed with skin glue. Patient tolerated the procedure well, put in the supine position, and taken to recovery in stable condition. The physician certified anesthesiologist assistant, Ms. Feldman, provided assistance during this case by: Assisting with retracting tissue, instillation of local anesthesia and closure of skin incisions.
[2018-01-30] MEDS ORDERED: ONDANSETRON HCL INJ/PF 4 MG/2 ML SDV IV PRN (08:42)
--- NOTE | 2018-01-30 08:42 | Discharge Summary ---
Discharge Summary (SDC) - Discharge Final Diagnosis: sebaceous cyst posterior neck Date of Surgery: 01/30/18 Discharge Date: 01/30/18 Condition: Stable Treatment or Instructions: WOUND CARE: Do not get area wet for 48 hours. In 48 hours you may remove outer dressing but leave paper band aids (steri strips) in place. Warm water and soap may wash over the wound. Do not scrub area. Pat dry. Cover if needed. Empty drain daily. Prior to emptying, measure fluid in bulb. If drain stops working, call clinic. PAIN MANAGEMENT: You may take Toradol 10mg one pill by mouth every six hours as needed for pain. FOLLOW UP: Follow up at [facility] in 7-10 days. Call clinic sooner if the area becomes swollen, red, or foul-smelling drainage. [facility]: [phone] Prescriptions: Ketorolac Tromethamine [Toradol 10 mg Tablet] 10 mg PO Q6HP PRN #20 tablet PRN Reason: Discharge Diet: As Tolerated Discharge Activity: Activity As Tolerated Report the Following to Your Physician Immediately: Increase in Pain, Fever over 101 Degrees, Unusual Bleeding, Redness, Swelling, Warmth, Increased Soreness, Drainage-Foul Smelling
[2018-01-30 11:43] VITALS: BP 115/54
== END 2018-01-30 11:20 | disposition home or self-care (01) ==
LOC: OROUT 05:24
PROVIDERS: ATTEND Surgery
PROC: 0JB50ZZ Excision of Left Neck Subcutaneous Tissue and Fascia, Open Approach (ICD-10-PCS; principal; 2018-01-30 07:30)
DX: L72.0 Epidermal cyst (principal); M19.90 Unspecified osteoarthritis, unspecified site; Z85.038 Personal history of other malignant neoplasm of large intestine; F17.210 Nicotine dependence, cigarettes, uncomplicated
CPT/HCPCS: 36415; 85027; 88305 ×2; 11426; J2250; J0690; J3490 ×2; A9270; J2405; J2704; 300

== ENCOUNTER 2019-01-08 11:48 | Day surgery (SDC) | payer MEDICARE ==
[2019-01-08 13:24] LABS: HEMATOCRIT 45.8 % (36.0-47.0); HEMOGLOBIN 15.7 g/dL (12.0-15.5); MEAN CORPUSCULAR HEMOGLOBIN 32.3 pg (27.0-33.4); MEAN CORPUSCULAR HGB CONC 34.2 g/dL (32.0-36.0); MEAN CORPUSCULAR VOLUME 94 fl (80-97); PLATELET COUNT 311 10^3/uL (150-450); RED BLOOD COUNT 4.85 10^6/uL (3.72-5.28); RED CELL DISTRIBUTION WIDTH 13.3 % (11.5-14.0); WHITE BLOOD COUNT 7.1 10^3/uL (4.0-10.5)
[2019-01-08] MEDS ORDERED: ONDANSETRON HCL INJ/PF 4 MG/2 ML SDV ONE (14:14)
[2019-01-08] MEDS ORDERED: GLYCOPYRROLATE INJ 0.4 MG/2 ML VIAL ONE (14:14)
[2019-01-08] MEDS ORDERED: MIDAZOLAM 2 MG/2 ML INJ ONE (14:16)
[2019-01-08] MEDS ORDERED: PROPOFOL INJ 200 MG/20 ML VIAL IV ONE (14:17)
--- NOTE | 2019-01-08 14:53 | Discharge Summary ---
Discharge Summary (SDC) - Discharge Final Diagnosis: No evidence of cancer. Multiple mid rectal polyps. Date of Surgery: 01/08/19 Discharge Date: 01/08/19 Condition: Good Treatment or Instructions: [address] [address] POST ENDOSCOPY DISCHARGE INSTRUCTIONS 1. Diet: Start clear liquids that a regular diet as tolerated. 2. Resume all preoperative medications. All oral anticoagulants and aspirins can be resumed 24 hours after procedure. 3. If a polypectomy was performed some bleeding per rectum may occur. This should stop within 3 days. If not, please contact the office. 4. If you had a colonoscopy you may experience some bloating and delayed return of normal bowel function for several days, your regular bowel movement pattern should resume within a week. 5. Please contact [facility] at to make an appointment with Dr. Manuel for 1 to 3 weeks following procedure. 6. If you have any questions or concerns regarding your care,treatment plan or follow up, please contact our office. 7. Per clinical guidelines we recommend you undergo a repeat colonoscopy in 1 years. Discharge Diet: Other (Comments) - Start with clear liquids and progress to small bland portions. Discharge Activity: Balance Activity w/Rest, Walk Frequently Report the Following to Your Physician Immediately: Nausea, Vomiting, Increase in Pain, Fever over 101 Degrees, Unusual Bleeding, Increased Soreness
--- NOTE | 2019-01-08 14:56 | Operative Report ---
Operative Report DATE OF SURGERY: 01/08/19 PREOPERATIVE DIAGNOSIS: History of right colon carcinoma status post colectomy POSTOPERATIVE DIAGNOSIS: Same; no evidence of tumor recurrence; multiple rectal polyps OPERATION: 1. Colonoscopy to ileocolonic anastomosis. 2. Multiple rectal polypectomies with cold forceps device SURGEON: BENIGNO VEGA ANESTHESIA: GA TISSUE REMOVED OR ALTERED: Multiple polyps COMPLICATIONS: None ESTIMATED BLOOD LOSS: Scant INTRAOPERATIVE FINDINGS: See below PROCEDURE: Obtaining informed consent the patient was taken from the preoperative holding area to the main endoscopy suite where monitoring devices were attached to the patient. Plan and surgical timeout were conducted The patient was placed in the left lateral decubitus position with knees to chest. A perianal examination was performed. There was no visible or palpable anorectal pathology. Sphincter tone was felt to be normal. The flexible adult colonoscope was advanced through the anal rectal canal, all the way to the ileocolonic anastomosis. A generous were visualized and photographed. There was no evidence of tumor recurrence. This was an excellent study well-prepped bowel: Minimal amount of green liquid stool. The scope was withdrawn through the length of the colon checked mucosa carefully. There was no evidence of tumor stricture or bleeding. E mucosa carefully. There was no evidence of tumor, stricture, bleeding or polyp. In the rectum at approximately 12 cm from the anal verge were multiple small polypoid-like lesions consistent with hyperplastic and/or tubular adenomatous. At least 6 or 7 were removed with the cold forceps device and sent in the same can as rectal polyps. Bleeding was minimal. The scope was slowly withdrawn through the anal rectal canal. Complete visualization of the rectum was achieved with photodocumentation. No other pathology seen. Small internal hemorrhoids appreciated. The scope was withdrawn to the patient's anus. The patient tolerated the procedure well and was taken to the recovery area in stable condition. Because of the patient's personal history of colon cancer close surveillance colonoscopy in 1 year recommended.
[2019-01-08 16:08] VITALS: BP 128/78
== END 2019-01-08 16:05 | disposition home or self-care (01) ==
LOC: OROUT 11:48
PROVIDERS: ATTEND Surgery
DX: Z12.11 Encounter for screening for malignant neoplasm of colon (principal); K63.5 Polyp of colon; Z85.038 Personal history of other malignant neoplasm of large intestine; Z87.19 Personal history of other diseases of the digestive system
CPT/HCPCS: 45380; 36415; 85027; 88305 ×2; J2250; J2405; J2704; 811